=== PATIENT | female | born 1960 | race Hispanic/Latino ===

== ENCOUNTER → 2017-10-06 | Outpatient (CLI) | payer OTHER ==
[~2017-10-06] MED LIST: AMLO10TA2 PO; CHOL200074 PO; CYAN-35 PO; FOLI1TAB15 PO; ISOS20TA7 PO; LACT10SO9 PO; LEVO500T2 PO; LEVO50TA11 PO; LEVO75 PO; LOSA100T29 PO; OMEP20CA10 PO; ONDA4TAB9 PO; PROP20TA7 PO
== END | disposition home or self-care (01) ==
LOC: RAH 13:34
PROVIDERS: ATTEND Internal Medicine Cardiovascular Disease
DX: Z13.6 Encounter for screening for cardiovascular disorders (principal)
CPT/HCPCS: 75571

== ENCOUNTER 2017-11-30 06:29 | Day surgery (SDC) | payer MEDICAID ==
[~2017-11-30 06:29] MED LIST changes: -CHOL200074 PO; -CYAN-35 PO; -ISOS20TA7 PO; -LEVO75 PO; -OMEP20CA10 PO; +SODIUM CHLORIDE 0.9% 1000ML 1,000 ML IV ONE
[2017-11-30] MEDS ORDERED: PROPOFOL 1000 MG/100 ML 100 ML IV ONE (07:19)
[2017-11-30 07:20] VITALS: BP 178/77
[2017-11-30] MEDS ORDERED: CYAN-35 PO (07:34)
[2017-11-30] MEDS ORDERED: CHOL200074 PO (07:34)
[2017-11-30] MEDS ORDERED: LEVO75 PO (07:34)
[2017-11-30] MEDS ORDERED: ISOS20TA7 PO (07:35)
[2017-11-30] MEDS ORDERED: OMEP20CA10 PO (07:35)
[2017-11-30] MEDS ORDERED: LIDOCAINE HCL 2% 20ML ONE (08:11)
[2017-11-30 08:20] VITALS: BP 119/73
== END 2017-11-30 08:43 | disposition home or self-care (01) ==
LOC: DAH 06:29 → ENDO 06:29
PROVIDERS: ATTEND Internal Medicine
DX: I85.10 Secondary esophageal varices without bleeding (principal); K74.60 Unspecified cirrhosis of liver; K29.60 Other gastritis without bleeding; I10 Essential (primary) hypertension; I85.00 Esophageal varices without bleeding; E03.9 Hypothyroidism, unspecified; D64.9 Anemia, unspecified; Z90.49 Acquired absence of other specified parts of digestive tract; Z98.890 Other specified postprocedural states; Z82.49 Family history of ischemic heart disease and other diseases of the circulatory system; Z80.9 Family history of malignant neoplasm, unspecified; K21.9 Gastro-esophageal reflux disease without esophagitis
CPT/HCPCS: 43239; 88305; 88312; A4606; J2704; J3490; J7030

== ENCOUNTER 2024-11-05 10:47 | Observation (INO) | payer MEDICAID ==
[~2024-11-05] VITALS: Ht 152.4 cm; Wt 39.3 kg
[~2024-11-05 10:47] MED LIST changes: +AMLO-258 PO; -AMLO10TA2 PO; +CHOL200074 PO; +CYAN-35 PO; +ISOS-58 PO; -LEVO500T2 PO; -LEVO50TA11 PO; +LEVO75 PO; -LOSA100T29 PO; +LOSA100T59 PO; +OMEP20CA12 PO; -ONDA4TAB9 PO; -SODIUM CHLORIDE 0.9% 1000ML 1,000 ML IV ONE
--- NOTE | 2024-11-05 11:16 | ERN ---
General Chief Complaint: Dizzy/Light Headed Stated Complaint: DIZZINESS Time Seen by MD: 10:48 History of Present Illness Initial Comments 64-year-old female brought in by EMS dizziness. History of diabetes, hypertension, dyslipidemia, diverticulosis. Patient reports that this morning she woke up and when she was stood up she felt quite dizzy. She was still remains dizzy. She denies any vertigo or spinning sensation. She reports it is mostly when she stands. She does report she had a diarrheal illness about a month ago, she was feeling weak afterwards. She went to her PCP and was diagnosed with dehydration, but was set up to get an echocardiogram as an outpatient. She was not have the echo yet. She denies any chest pain or dyspnea. She denies any fevers. He has no other complaints. PCP: Susana Cordova Director Of Services: Jj Allergies: Coded Allergies: No Known Drug Allergies (Unverified Allergy, Unknown, 01/07/16) Home Meds Reported Medications Isosorbide Mononitrate (Isosorbide Mononitrate) 20 Mg Tablet, 20 MG PO DAILY, TAB 11/30/17 Omeprazole (Omeprazole) 20 Mg Capsule.dr, 20 MG PO DAILY, CAP 11/30/17 Cyanocobalamin (Vitamin B-12) (Vitamin B-12) 1,000 Mcg Capsule, 1000 MCG PO D AILY, CAP 11/30/17 Cholecalciferol (Vitamin D3) (Vitamin D-3) 2,000 Unit Capsule, 2000 UNIT PO DAILY, CAP 11/30/17 Levothyroxine Sodium (Levothroid/Synthroid) 75 Mcg Tab, 75 MCG PO DAILY, TAB 11/30/17 Lactulose (Lactulose) 20 Gm/30 Ml Solution, 20 GM PO DAILY, ML 01/07/16 Propranolol HCl (Propranolol HCl) 20 Mg Tablet, 20 MG PO BID, TAB 01/07/16 Amlodipine Besylate (Amlodipine Besylate) 10 Mg Tablet, 10 MG PO DAILY, TAB 01/07/16 Folic Acid (Folic Acid) 1 Mg Tablet, 1 MG PO DAILY, TAB 01/07/16 Losartan Potassium (Losartan Potassium) 100 Mg Tablet, 100 MG PO DAILY, TAB 01/07/16 Past Medical History Past Medical History: Diabetes-Type II, Diverticulosis, High Cholesterol, Hypertension Past Surgical History: Other Surgical History Other: ABD SX ROS Dictation CONSTITUTIONAL: No chills, no fever, no weakness, no diaphoresis, no malaise. HEAD/FACE: No signs of trauma. EENT: No eye pain, no blurred vision, no tearing, no double vision, no ear pain, no ear discharge, no nose pain, no nasal congestion, no throat pain, no th roat swelling, no mouth pain. RESPIRATORY: No cough, no orthopnea, no SOB, no stridor, no wheezing. CARDIOVASCULAR: Dizziness GASTROINTESTINAL/ABDOMINAL: No abdominal pain, no constipation, no diarrhea, no nausea, no vomiting. GENITOURINARY: No abnormal discharge, no dysuria, no frequent urination, no hematuria. No complaints of pain in the genitals. MUSCULOSKELETAL: No back pain, no gout, no joint pain, no joint swelling, no muscle pain, no muscle stiffness, no neck pain. INTEGUMENTARY: No change in color, no change in hair/nails, no dryness, no lesion, no lumps, no rash. NEUROLOGICAL/PSYCH: No anxiety, not depressed, no emotional problem, no headache, no numbness, no pre-existing deficit, no history of seizures, no tremors, no weakness. HEMATOLOGIC/LYMPHATIC: Not anemic, no history of blood clots, no apparent bleeding, no bruising, glands not swollen. All Systems Negative, Except as Noted. Physical Exam Physical Exam Dictation VITAL SIGNS: Reviewed. GENERAL APPEARANCE: Alert, oriented x3, no acute distress HEAD AND FACE: Non-traumatic. EYES: PERRL, pink conjunctivas, eyelid no trauma, anterior chamber clear. EARS: Pinnas intact and no signs of trauma or erythema. Ear canals clear and no discharge. TMs no erythema. NOSE: No discharge, no bleeding. OROPHARYNX: Mouth normal, teeth no caries, tongue pink. Pharynx clear, no e rythema. Tonsils no exudates, no abscesses noted. Mucous membrane moist. NECK: Supple, non-tender, no thyromegaly, no masses, no JVD, no bruits. BREAST: Deferred. CHEST: No tenderness, no crepitus, no paradoxical movement, no retractions. LUNGS: Clear, well-ventilated, symmetric, no rales, no wheezing, no rhonchi, no stridor, good breath sounds bilaterally. HEART: Regular rate, regular rhythm, no murmur, no gallops. VASCULAR: No peripheral edema. ABDOMEN: Soft, positive bowel sounds, nondistended, no guarding, nontender, no rebound, no masses no hepatomegaly, no splenomegaly, no Puckett's sign, no hernias. RECTAL: Deferred. GENITAL: Deferred. NEUROLOGICAL: Normal speech, gross motor function intact, gross sensory function intact. MUSCULOSKELETAL: Neck nontender, full range of motion, back nontender, full range of motion. EXTREMITIES: Nontender, full range of motion. SKIN: Color pink, dry, no turgor, no rash, no lacerations, no abrasions, no contusions. LYMPHATICS: Deferred. Results Laboratory and Microbiology Lab and Micro Result Laboratory Tests Test 11/05/24 11:53 White Blood Count 2.4 K/uL (4.8-10.8) L Red Blood Count 3.50 MIL/uL (4.00-5.50) L Hemoglobin 11.3 g/dL (12.0-16.0) L Hematocrit 34.2 % (36-48) L Mean Corpuscular Volume 97.7 fL (79-99) Mean Corpuscular Hemoglobin 32.3 pg (27.0-33.0) Mean Corpuscular Hemoglobin Concent 33.0 g/dL (32.0-36.0) Red Cell Distribution Width 14.0 % (11.0-15.5) Platelet Count 51 K/uL (130-400) L Mean Platelet Volume 11.5 fL (7.5-10.5) H Immature Granulocyte % (Auto) 0.4 % (0-1) Neutrophils (%) (Auto) 80.8 % (40.0-77.0) H Lymphocytes (%) (Auto) 13.8 % (21.0-51.0) L Monocytes (%) (Auto) 3.8 % (3.0-13.0) Eosinophils (%) (Auto) 0.4 % (0.0-8.0) Basophils (%) (Auto) 0.8 % (0.0-5.0) Neutrophils # (Auto) 1.9 K/uL (1.8-7.7) Lymphocytes # (Auto) 0.3 K/uL (1.0-4.8) L Monocytes # (Auto) 0.1 K/uL (0.1-1.0) Eosinophils # (Auto) 0.01 K/uL (0.00-0.70) Basophils # (Auto) 0.02 K/uL (0.00-0.20) Absolute Immature Granulocyte (auto 0.01 K/uL (0-1) Segmented Neutrophils % 85 % (40-70) H Band Neutrophils % 5 % (0-2) H Lymphocytes % (Manual) 6 % (22-44) L Monocytes % (Manual) 2 % (2-9) Eosinophils % (Manual) 2 % (1-6) Nucleated Red Blood Cells 0.0 % (0.0-0.19) Differential Comment MANUAL DIFFERENTIAL White Cell Morphology Comment CONSISTENT W/DIFF Platelet Morphology Comment DECREASED Red Blood Cell Morphology See comments Prothrombin Time 13.2 SEC (9.6-11.6) H Prothromb Time International Ratio 1.28 (0.85-1.15) H Sodium Level 136 mmol/L (136-145) Potassium Level 3.5 mmol/L (3.5-5.1) Chloride Level 102 mmol/L (101-111) Carbon Dioxide Level 29 mmol/L (21-32) Blood Urea Nitrogen 8 mg/dL (7-18) Creatinine 0.9 mg/dL (0.5-1.0) Glomerular Filtration Rate Calc 71 mL/min (>90) Random Glucose 104 mg/dL (70-105) Total Calcium 9.0 mg/dL (8.5-10.1) Total Creatine Kinase 44 U/L (21-232) # Troponin I High Sensitivity 25 ng/L (4-50) B-Type Natriuretic Peptide 669 pg/mL (0-100) H MDM CC: Dizziness and lightheaded Historian: Patient Comorbidities: Diabetes type 2, hypertension, high cholesterol Limitations by social determinants of health: None Differential diagnosis: ACS, dehydration, electrolyte abnormalities, brain pathology, other. Vital signs: Hypertension otherwise stable vital signs, remained stable in the ER EKG: Sinus rhythm, rate of 85, left axis deviation, good R-wave progression. Meets LVH criteria. No STEMI. Independently interpreted by me. Labs (independently interpreted by me ): Leukopenia 2.4 K, left shift 80% neutrophils, there are about 5% bands. She was also anemic normocytic anemia heme 11.3 as well as thrombocytopenic platelets 51. Coags show mildly elevated INR 1.28. Chemistry panel is unremarkable, CK troponin are stable. The BNP is mildly elevated at 669. No clinical signs of fluid overload on exam. CXR ( independently interpreted by me ): No cardiomegaly pleural effusions or focal infiltrates. CT head without contrast ( independently interpreted by me ): No obvious bleeds or masses. Treatment in ED: hydralazine, 1L LR Re-evaluation: Vital signs improved. Plan: Admission for further treatment and evaluation. Consult: hospitalist for admission ED Course Orders Procedure Category Date Status Time Cbc With Differential LAB 11/05/24 Complete 11:01 Prothrombin Time With LAB 11/05/24 Complete INR 11:01 B-Type Natriuretic LAB 11/05/24 Complete Peptide 11:01 Chest 1vw RAD 11/05/24 Resulted 11:01 12 Lead Ekg Tracing- EKG 11/05/24 Resulted Technical 11:01 Lactated Ringers PHA 11/05/24 Complete 1000ml (Lactated 11:30 Creatine Kinase, Total LAB 11/05/24 Complete 11:01 Troponin I High LAB 11/05/24 Complete Sensitivity 11:01 Urinalysis Profile LAB 11/05/24 Logged 11:01 Basic Metabolic Panel LAB 11/05/24 Complete 11:01 Ct Head/Brain W/O CT 11/05/24 Taken Contrast 11:01 Manual Differential LAB 11/05/24 Complete 11:53 Hydralazine 20mg Inj PHA 11/05/24 Verified (Apresoline 20mg In 15:00 Current Medications Medications (Trade) Dose Ordered Sig/Erika Route PRN Reason Start Time Stop Time Status Last Admin Dose Admin Lactated Ringer's 1,000 ml @ 0 mls/hr ONCE ONCE IV 11/05/24 11:30 11/05/24 11:31 DC Vital Signs Date Time Temp Pulse Resp B/P (MAP) Pulse Ox O2 Delivery O2 Flow Rate FiO2 11/05/24 10:48 98.2 88 18 176/84 97 Room Air 0 DX & DISP Disposition: Inpatient Departure Impression: Primary Impression: Hypertensive urgency Additional Impressions: Pancytopenia, Bandemia, Dizziness Critical Time: 30 minutes (Critical Care Procedure NoteAuthorized and Performed by: meTotal critical care time: Approximately 36 minutesDue to a high probability of clinically significant, life threatening deterioration, the patient required my highest level of preparedness to intervene emergently and I personally spent this critical care time directly and personally managing the patient. This critical care time included obtaining a history; examining the patient; pulse oximetry; ordering and review of studies; arranging urgent treatment with development of a management plan; evaluation of patient's r esponse to treatment; frequent reassessment; and, discussions with other providers.This critical care time was performed to assess and manage the high probability of imminent, life-threatening deterioration that could result in multi-organ failure. It was exclusive of separately billable procedures and treating other patients and teaching time.Please see MDM section and the rest of the note for further information on patient assessment and treatment.) Condition: Stable Referrals: SUSANA CORDOVA MD (PCP) BASSEM VANG DO Nov 05, 2024 11:16
--- NOTE | 2024-11-05 11:19 | EKG ---
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
[2024-11-05] MEDS: LACTATED RINGERS 1000ML 1,000 ML IV ONE (11:30)
[2024-11-05 12:10] LABS: BASOPHILS # (AUTO) 0.02 K/uL (0.00-0.20); BASOPHILS % (AUTO) 0.8 % (0.0-5.0); EOSINOPHILS # (AUTO) 0.01 K/uL (0.00-0.70); EOSINOPHILS % (AUTO) 0.4 % (0.0-8.0); HEMATOCRIT 34.2 % (36-48); IMMATURE GRANULOCYTE ABSOLUTE 0.01 K/uL (0-1); LYMPHOCYTES # (AUTO) 0.3 K/uL (1.0-4.8); LYMPHOCYTES % (AUTO) 13.8 % (21.0-51.0); MEAN CORPUSCULAR HEMOGLOBIN 32.3 pg (27.0-33.0); MEAN CORPUSCULAR VOLUME 97.7 fL (79-99); MONOCYTES # (AUTO) 0.1 K/uL (0.1-1.0); MONOCYTES % (AUTO) 3.8 % (3.0-13.0); NEUTROPHILS # (AUTO) 1.9 K/uL (1.8-7.7); NEUTROPHILS % (AUTO) 80.8 % (40.0-77.0); PLATELET COUNT (AUTO) 51 K/uL (130-400); WHITE BLOOD COUNT (AUTO) 2.4 K/uL (4.8-10.8)
--- NOTE | 2024-11-05 12:11 | HMCIMG ---
CHEST 1VW HISTORY: Dizziness COMPARISON: 05/08/2016 FINDINGS: A frontal projection of the chest was obtained. Mild bilateral pulmonary infiltrates are seen may be related to mild pulmonary vascular congestion with possible superimposed pneumonitis. The heart is borderline enlarged. Degenerative changes are seen. No evidence of aortic calcification is seen. IMPRESSION: 1. Mild bilateral pulmonary infiltrates are seen may be related to mild pulmonary vascular congestion with possible superimposed pneumonitis.
[2024-11-05 12:19] LABS: CREATININE 0.9 mg/dL (0.5-1.0); INR 1.28 (0.85-1.15); POTASSIUM 3.5 mmol/L (3.5-5.1); PROTHROMBIN TIME 13.2 SEC (9.6-11.6)
[2024-11-05 12:35] LABS: B-TYPE NATRIURETIC PEPTIDE 669 pg/mL (0-100)
[2024-11-05 14:13] LABS: BAND NEUTROPHILS % (MANUAL) 5 % (0-2); EOSINOPHILS % (MANUAL) 2 % (1-6); LYMPHOCYTES % (MANUAL) 6 % (22-44); MAN.DIFF COMMENT-IMPRESSION MANUAL DIFFERENTIAL; MONOCYTES % (MANUAL) 2 % (2-9); PLATELET MORPHOLOGY COMMENT DECREASED; SEGMENTED NEUTROPHILS % 85 % (40-70); TOTAL CELLS COUNTED 100; WBC MORPHOLOGY CONSISTENT W/DIFF
--- NOTE | 2024-11-05 14:37 | HMCIMG ---
CT HEAD/BRAIN W/O CONTRAST HISTORY: Dizziness COMPARISON: None TECHNIQUE: Multiple sequential axial images of the head were obtained from the base of the skull through vertex. Patient was not given contrast through intravenous route. FINDINGS: The ventricles and extraventricular CSF spaces are nondilated for patient's age. There is no midline shift, mass effect or herniation. No acute intracranial bleed is seen. Visualized portion of the paranasal sinuses are grossly within normal limits. IMPRESSION: 1. No acute intracranial bleed is seen. CT was performed with one or more following dose reduction techniques: automated exposure control, adjustment of the mA and kv according to patient's size, or use of a iterative reconstruction technique.
[2024-11-05] MEDS: hydrALAZine 20MG/ML VIAL IV ONE (15:01)
[2024-11-05] MEDS ORDERED: MAG/ALUM/SIMETH 30 ML UDCUP PO PRN (15:30)
[2024-11-05] MEDS ORDERED: guaiFENesin-DM 200/20MG 10ML PO PRN (15:30)
[2024-11-05] MEDS ORDERED: DiphenhydrAMINE HCL 25 MG CAPSULE PO PRN (15:30)
[2024-11-05] MEDS ORDERED: LACTULOSE 20 GM/30 ML UDCUP PO PRN (15:30)
[2024-11-05] MEDS ORDERED: acetaMINOPHEN WITH coDEINE 1 TAB TAB PO PRN ×2 (15:30)
[2024-11-05] MEDS ORDERED: NITROGLYCERIN 0.4 MG SL TAB SL PRN (15:30)
[2024-11-05] MEDS ORDERED: acetaMINOPHEN 325 MG TAB PO PRN ×2 (15:30)
--- NOTE | 2024-11-05 15:55 | NUR ---
Anila monzon in ED - 11/05/24 at 1645 by [email or web address] BAR CODES FROM ANTIBIOTICS NOT SCANNING: DOXYCICLINE LOT #[id number] CEFEPIME LOT#[id number] AZITHROMYCIN LOT#[id number]
--- NOTE | 2024-11-05 16:05 | HP ---
[facility] HISTORY AND PHYSICAL Date of Service: Nov 05, 2024 Time of Service: 15:58 HISTORY OF PRESENT ILLNESS: 64-year-old female with past medical history of essential hypertension, hyperlipidemia, liver cirrhosis, osteoarthritis, GERD, who presented to [facility] ED earlier today brought by EMS for concerns of dizziness. Patient reports earlier in the day when she woke up she began to experience some dizziness, and near-syncope episode. Patient did not lose consciousness. Patient denied chest pain shortness breath fever chills nausea vomiting or diaphoresis. Patient states she is followed closely in the outpatient setting by her primary control systems designer Dr. Gardner who has scheduled her for some cardiac exam is in the coming weeks. She states her symptoms of dizziness continued, and progressively worsened this morning therefore she decided to come to the hospital for further evaluation. Upon arrival to ED she was noted afebrile, blood pressure 176/84, heart rate 88, respirations 18, O2 saturation 97% on room air. Further evaluation lab significant for WBCs 2.4, H&H 11.3 and 34.2, platelet count 51, BNP of 669, PT of 13.2, INR of 1.2. CXR revealed mild pulmonary vascular congestion. Head CT with no acute findings. EKG revealed NSR, with prolonged MT interval, LVH. In the ED patient was administered one time dose of IV hydralazine, placed on IVF. Request then made to admit to the hospital for further evaluation and management. REVIEW OF SYSTEMS CONSTITUTIONAL: Denies fevers, chills, or night sweats. No unintentional weight loss reported. NEUROLOGICAL: As mentioned in HPI ENT: No hearing loss, otalgia, otorrhea, rhinitis, rhinorrhea, hoarseness, or sore throat. CARDIOVASCULAR: As mentioned in HPI PULMONARY: Denies any shortness of breath, cough, phlegm/sputum, hemoptysis, pleuritic chest pain. SLEEP: Denies morning headaches, daytime somnolence or napping. Denies difficulty falling asleep, staying asleep, waking from sleep. Denies knowledge of snoring. GASTROINTESTINAL: Denies any type of dysphagia to either liquids or solids. Denies nausea, vomiting, pyrosis, early satiety, abdominal pain, diarrhea, constipation, or changes in stool consistency or caliber. Denies coffee-ground emesis, hematemesis, hematochezia, or melanotic stools. GENITOURINARY: Denies frequency, urgency, nocturia, hematuria or incontinence (Storage/Irritative symptoms.) Low urinary stream, straining to void, urinary intermittency or hesitancy, splitting of the voiding stream, terminal dribbling. ENDOCRINOLOGIC: Denies polyuria, polydipsia, polyphagia or heat/cold intolerances. HEMATOLOGIC: Denies thrombophilia/previous clots, or coagulopathy/bleeding disorders. ONCOLOGIC: Denies personal history of malignancy. DERMATOLOGIC: Denies rashes or pruritus. PSYCHIATRIC: Denies any suicidal or homicidal ideation. Denies hallucinations. PAST MEDICAL HISTORY: MENTIONED IN HPI PAST SURGICAL HISTORY: COLON SURGERY PAST SOCIAL HISTORY: NO TOBACCO NO ALCOHOL NO SUBSTANCE ABUSE FAMILY HISTORY: NONCONTRIBUTORY Coded Allergies: No Known Drug Allergies (Unverified Allergy, Unknown, 01/07/16) PHYSICAL EXAM GENERAL APPEARANCE: The patient is awake, alert, and oriented, in no acute cardiopulmonary distress. NEUROLOGICAL: Cranial nerves II-XII grossly intact. Motor is 5/5 in bilateral upper and lower extremities proximal to distal. No sensory deficits. HEENT: Face is symmetric. Pupils are equal and reactive. Extraocular movements are intact. NECK: Supple. No JVD. No thyromegaly. No submental, submandibular, pre- /postauricular, occipital or supraclavicular lymphadenopathy. CHEST: Normal chest expansion. No Telemetry. LUNGS: Absence of any rales, rhonchi or any wheezing. CARDIOVASCULAR: Regular. S1 and S2 normal. No appreciable rubs, murmurs or gallops. ABDOMEN: Soft, nontender, and nondistended. There is no rebound, voluntary guarding, or rigidity. : Deferred. No Church. EXTREMITIES: Non-edematous and not cyanotic. No clubbing. Good capillary refill. SKIN: No skin breakdown. Vital Sign (Last 24 Hours) 11/05/24 10:48 Temp 98.2 Pulse 88 Resp 18 B/P (MAP) 176/84 Pulse Ox 97 O2 Delivery Room Air O2 Flow Rate 0 LABS: Laboratory: Test 11/05/24 11:53 Range/Units White Blood Count 2.4 L 4.8-10.8 K/uL Red Blood Count 3.50 L 4.00-5.50 MIL/uL Hemoglobin 11.3 L 12.0-16.0 g/dL Hematocrit 34.2 L 36-48 % Mean Corpuscular Volume 97.7 79-99 fL Mean Corpuscular Hemoglobin 32.3 27.0-33.0 pg Mean Corpuscular Hemoglobin Concent 33.0 32.0-36.0 g/dL Red Cell Distribution Width 14.0 11.0-15.5 % Platelet Count 51 L 130-400 K/uL Mean Platelet Volume 11.5 H 7.5-10.5 fL Immature Granulocyte % (Auto) 0.4 0-1 % Neutrophils (%) (Auto) 80.8 H 40.0-77.0 % Lymphocytes (%) (Auto) 13.8 L 21.0-51.0 % Monocytes (%) (Auto) 3.8 3.0-13.0 % Eosinophils (%) (Auto) 0.4 0.0-8.0 % Basophils (%) (Auto) 0.8 0.0-5.0 % Neutrophils # (Auto) 1.9 1.8-7.7 K/uL Lymphocytes # (Auto) 0.3 L 1.0-4.8 K/uL Monocytes # (Auto) 0.1 0.1-1.0 K/uL Eosinophils # (Auto) 0.01 0.00-0.70 K/uL Basophils # (Auto) 0.02 0.00-0.20 K/uL Absolute Immature Granulocyte (auto 0.01 0-1 K/uL Segmented Neutrophils % 85 H 40-70 % Band Neutrophils % 5 H 0-2 % Lymphocytes % (Manual) 6 L 22-44 % Monocytes % (Manual) 2 2-9 % Eosinophils % (Manual) 2 1-6 % Nucleated Red Blood Cells 0.0 0.0-0.19 % Differential Comment MANUAL DIFFERENTIAL White Cell Morphology Comment CONSISTENT W/DIFF Platelet Morphology Comment DECREASED Red Blood Cell Morphology See comments Prothrombin Time 13.2 H 9.6-11.6 SEC Prothromb Time International Ratio 1.28 H 0.85-1.15 Sodium Level 136 136-145 mmol/L Potassium Level 3.5 3.5-5.1 mmol/L Chloride Level 102 101-111 mmol/L Carbon Dioxide Level 29 21-32 mmol/L Blood Urea Nitrogen 8 7-18 mg/dL Creatinine 0.9 0.5-1.0 mg/dL Glomerular Filtration Rate Calc 71 >90 mL/min Random Glucose 104 70-105 mg/dL Total Calcium 9.0 8.5-10.1 mg/dL Total Creatine Kinase 44 # 21-232 U/L Troponin I High Sensitivity 25 4-50 ng/L B-Type Natriuretic Peptide 669 H 0-100 pg/mL Current Medications Medications (Trade) Dose Ordered Sig/Erika Route PRN Reason Start Time Stop Time Status Last Admin Dose Admin Acetaminophen (TYLenol 325MG TAB) 650 mg Q4H PRN PO MILD PAIN (1-3) 11/05/24 15:30 12/05/24 15:29 Acetaminophen (TYLenol 325MG TAB) 650 mg Q6H PRN PO TEMPERATURE GREATER THAN 101.5 11/05/24 15:30 12/05/24 15:29 Acetaminophen/ Codeine Phosphate (TYLenol-coDEINE TAB) 1 tab Q6H PRN PO MODERATE PAIN (4-6) 11/05/24 15:30 12/05/24 15:29 Acetaminophen/ Codeine Phosphate (TYLenol-coDEINE TAB) 2 tab Q6H PRN PO SEVERE PAIN (7-10) 11/05/24 15:30 12/05/24 15:29 Al Hydroxide/Mg Hydroxide (MAALox PLUS 30ML) 30 ml Q6H PRN PO INDIGESTION 11/05/24 15:30 12/05/24 15:29 Diphenhydramine HCl (BENAdryl CAP) 25 mg Q4H PRN PO MILD ITCHING/RASH 11/05/24 15:30 12/05/24 15:29 Famotidine (Pepcid 20mg Vial) 20 mg BID IV 11/05/24 21:00 12/05/24 20:59 Guaifenesin/ Dextromethorphan (RobiTUSSin DM 200/20MG 10ML) 10 ml Q4H PRN PO COUGH 11/05/24 15:30 12/05/24 15:29 Hydralazine HCl (APRESOLine 20MG INJ) 10 mg Q6H PRN IV For:SBP above 160;DBP above 90 11/05/24 15:30 12/05/24 15:29 Lactulose (Constulose 20gm/ 30ml Udcup) 20 gm BID PRN PO CONSTIPATION 11/05/24 15:30 12/05/24 15:29 Nitroglycerin (Nitrostat) 0.4 mg PROTOCOL PRN SL CHEST PAIN 11/05/24 15:30 12/05/24 15:29 Ondansetron HCl (zoFRAN 4MG INJ) 4 mg Q6H PRN IV NAUSEA/VOMITING 11/05/24 15:30 12/05/24 15:29 DIAGNOSTICS / RADIOLOGY: [ ] ASSESSMENT: Near-syncope POA Pulmonary edema POA Elevated BNP POA Liver cirrhosis POA Pancytopenia POA Essential hypertension POA Hyperlipidemia POA PLAN: Admit patient to telemetry floor under hospitalist team Obtain home medications, reconcile and resume accordingly Obtain 2D echo Obtain carotid Dopplers Request Cardiology consult PT evaluation Okay to initiate heart healthy diet Pepcid for GI prophylaxis SCDs for DVT prophylaxis P.r.n. medications for fever, pain, nausea, constipation Follow-up a.m. labs Further orders per hospital course ADVANCED CARE PLANNING 1. Which of the following were discussed? Hospice Care - No Therapeutic options - Yes Advance Directives - Yes Other discussions - 2. Discussed with who? The patient 3. Voluntary nature of this service was explained to the patient? Yes 4. Amount of time spent - ___ 20 minutes ____ 5. Reviewed by Physician? (if this service was performed by NPP) Yes DELFINA BOWMAN Nov 05, 2024 16:05
--- NOTE | 2024-11-05 16:13 | HMCIMG ---
US CAROTID DUPLEX HISTORY: Near syncope COMPARISON: None TECHNIQUE: Duplex carotid arterial Doppler ultrasound study was performed. FINDINGS: The common, internal and external carotid arteries are visualized. The peak systolic velocities of right common carotid artery is 107 centimeters per second, right internal carotid artery is 129 centimeters per second, right external carotid artery is 117 centimeters per second, and right vertebral artery is 95 centimeters per second. Right internal carotid artery to right common carotid artery ratio is 1.2. Right vertebral artery is seen with antegrade flow. The peak systolic velocities of left common carotid artery is 125 centimeters per second, left internal carotid artery is 155 centimeters per second, left external carotid artery is 168 centimeters per second, and left vertebral artery is 87 centimeters per second. Left internal carotid artery to left common carotid artery ratio is 1.2. Left vertebral artery is seen with antegrade flow. There are bilateral echogenic plaques. IMPRESSION: 1. No hemodynamically significant lesion is seen of either extracranial carotid artery system.
--- NOTE | 2024-11-05 16:45 | NUR ---
NOTIFY MR. DELFINA BATEMAN FOR HOSPITALIST OF POTASSIUM 3.5 AND PLATLETS 51. NO NEW ORDERS.
[2024-11-05] MEDS: ondanSETRON 4MG INJ IV PRN (17:06)
--- NOTE | 2024-11-05 19:13 | NUR ---
NOTIFY DR. FRANCES OF NEW CONSULT.
--- NOTE | 2024-11-05 19:23 | NUR ---
PT CARE ASSUMED AT THIS TIME
--- NOTE | 2024-11-05 19:34 | NUR ---
DR. FRANCES AT BEDSIDE AT THIS TIME
--- NOTE | 2024-11-05 19:45 | CONS ---
[facility] Cardiology Consultation Note Cardiology progress note November 05, 2024 Chief complaint: This is a 64-year-old female whom we are asked to evaluate for near-syncope. History of present illness: This patient was initially referred to me in 2018 for evaluation of a systolic murmur. At that point she had had a 2D echocardiogram performed by Dr. Alcaraz. Several request obtain a copy of the report but this could never be obtained. I scheduled her for a repeat echo but she never followed up. She was seen again by me on October 24, 2024. At that time she related that she was having dizziness and feeling of near-syncope. Has been states at times she would appeared dazed and staring into space. Electrocardiogram showed septal Q-waves. She was scheduled for a 2D echocardiogram Lexiscan Cardiolite stress test and one week electronic device monitor. All of which are currently pending. Past medical history: She has a history of hypertension dyslipidemia atrophic kidney cirrhosis with pancytopenia and hypothyroidism. Surgical history: EGD June 2013 remote colon surgery Family history: Mother had malignant tumor of the stomach Social history: She is a nonsmoker nondrinker Allergies: No known allergies Medications: At the time of my evaluation two weeks ago she was taking omeprazole 20 mg daily folic acid1 mg b.i.d. [id number] mcg daily propranolol 20 mg b.i.d. vitamin B12 losartan 100 mg daily amlodipine 10 mg daily and Kristalose pack at one daily and vitamin-D supplementation. Physical exam: Blood pressure is 176/84 heart rate is in the 80s the patient is afebrile. She has no elevation of the jugular venous pressure no bruits S1 normal S2 physiologically split. 1/6 systolic ejection murmur is present. No diastolic component appreciable. Abdomen is soft nontender. Extremities show no edema. She is alert and oriented. Laboratory studies: White count 2.4 Hemoglobin 11.3 Platelet count 01812. Potassium 3.5 BUN eight creatinine 0.9. Brain natriuretic peptide level 669 troponin of 25. Electrocardiogram four one sinus rhythm with septal Q-waves in V1 V2 no acute ST changes. Chest x-ray: This is a portable film. Borderline heart size no effusions or infiltrates. Thorax. Trachea is midline. Small granuloma are noted. Assessment: 1. Near-syncope 2. Abnormal EKG with septal Q-waves in V1 V2 3. Cirrhosis when 4. Pancytopenia 5. Hypothyroidism 6. Hypertension 7. Atrophic kidney Plan: The patient has been scheduled for an event monitor 2D echo and Lexiscan Cardiolite stress test to assess her septal Q-waves. We will plan on performing these tests as an inpatient given her persistent symptoms. I will review results when available. We will watch for arrhythmias while on telemetry. If workup is negative I would consider neurologic evaluation as an outpatient to assess for possible seizure disorder. CADE FRANCES MD Nov 05, 2024 19:45
--- NOTE | 2024-11-05 20:30 | NUR ---
PT PLACED ON A PUREWICK AT THIS TIME
[2024-11-05] MEDS: FAMOTIDINE 20MG VIAL IV SCH (20:58)
[2024-11-05] MEDS: PROPRANOLOL HCL 20 MG TAB PO SCH (20:58)
[2024-11-06] MEDS: hydrALAZine 20MG/ML VIAL IV PRN (03:31)
[2024-11-06 04:02] LABS: APPEARANCE,URINE CLEAR (CLEAR); BILIRUBIN,URINE NEGATIVE (NEGATIVE); COLOR,URINE LIGHT-YELLOW (YELLOW); GLUCOSE, URINE (UA) NEGATIVE (NEGATIVE); KETONES,URINE NEGATIVE (NEGATIVE); LEUKOCYTE ESTERASE ,URINE NEGATIVE Leu/uL (NEGATIVE); NITRATE,URINE NEGATIVE (NEGATIVE); OCCULT BLOOD,URINE NEGATIVE (NEGATIVE); PROTEIN,URINE NEGATIVE (NEGATIVE); UROBILINOGEN,URINE 0.2 mg/dL (0.2-1.0)
[2024-11-06 04:12] LABS: ADD UA MICROSCOPIC NO
--- NOTE | 2024-11-06 06:21 | NUR ---
NUCLEAR MED AT BEDSIDE AT THIS TIME
[2024-11-06] MEDS: levoTHYROxine 75 MCG TABLET PO SCH (06:30)
--- NOTE | 2024-11-06 06:30 | NUR ---
PER NUCLEAR MED ED RN WAS INSTRUCTED TO HOLD SYNTHROID FOR AN HOUR TIL SECOND PORTION OF PREP IS DONE. INSTRUCTIONS WILL BE RELATED TO DAY SHIFT RN.
--- NOTE | 2024-11-06 07:21 | NUR ---
REPORT GIVEN TO JAN JAVIER
[2024-11-06] MEDS: PANTOPrazole 40 MG TAB DR PO SCH (07:30)
--- NOTE | 2024-11-06 08:12 | PN ---
[facility] Cardiology Progress Note CARDIOLOGY PROGRESS NOTE NOVEMBER 06, 2024 Problems: 1. Near-syncope 2. Abnormal EKG with septal Q-waves in V1 V2 3. Cirrhosis when 4. Pancytopenia 5. Hypothyroidism 6. Hypertension 7. Atrophic kidney Blood pressure is running 140-150 systolic heart rate is in the 70s and the patient is afebrile. Troponin was 25. Brain natriuretic peptide level 669 however it is difficult to interpret this in the setting of cirrhosis. The patient continues on amlodipine famotidine folic acid vitamin-D lactulose levothyroxine losartan pantoprazole and propranolol. She is scheduled for a 2D echocardiogram and Lexiscan Cardiolite stress test today. I will review results when available and make further recommendations. No arrhythmias noted overnight. As noted the had described episodes where she stares into space. If workup here is negative would suggest outpatient neurology evaluation. CADE FRANCES MD Nov 06, 2024 08:11
--- NOTE | 2024-11-06 08:15 | NUR ---
DR FRANCES AT BEDSIDE FOR CARDIOLOGY
--- NOTE | 2024-11-06 08:22 | NUR ---
IN LEXISCAN AT THIS TIME
[2024-11-06] MEDS ORDERED: REGADENOSON 0.4 MG/5 ML PF SYG IVP ONE (08:30)
[2024-11-06] MEDS: CHOLECALCIFEROL 2000 UNIT PO SCH (09:00)
[2024-11-06] MEDS: FOLic ACID 1 MG TABLET PO SCH (11:13)
[2024-11-06] MEDS: CYANOCOBALAMIN (VITAMIN B-12) 1,000 MCG TABLET PO SCH (11:13)
[2024-11-06] MEDS: amLODIPine 5 MG TAB PO SCH (11:13)
[2024-11-06] MEDS: LACTULOSE 20 GM/30 ML UDCUP PO SCH (11:13)
[2024-11-06] MEDS: LoSARTan 100 MG TABLET PO SCH (11:13)
--- NOTE | 2024-11-06 15:19 | NUR ---
DCP: HOME Pt on SSI, lives at home with her Darshan Pratt [phone]. assists pt as needed with ADLS, home management, transportation, and meal prep. Pt uses a cane when ambulating. Has no in home care services or HD need. PCP is Prateek Mooney and uses [facility] on [address]. DCP is home Addendum: 11/06/24 at 1519 by PORFIRIO LIND Amended: Links added.
--- NOTE | 2024-11-06 15:22 | PN ---
[facility] PROGRESS NOTE Date of Service: Nov 06, 2024 Time of Service: 15:19 SUBJECTIVE: [This is a 64-year-old female with significant medical history of hypertension. She presented to the emergency department with complaints of dizziness. Apparently patient woke up yesterday feeling dizzy and able to ambulate hence she came to the emergency department for further evaluation. Imaging was done including CT of the head, and chest x-ray which were unremarkable. Patient went for Lexiscan this morning and a 2D echo ultrasound still pending report. We will continue to follow recommendations from the bushwalking guide. She was evaluated in ED room 13, on my evaluation, patient denies any dizziness. ] REVIEW OF SYSTEMS CONSTITUTIONAL: Denies fevers, chills, or night sweats. No unintentional weight loss reported. NEUROLOGICAL: As mentioned in HPI ENT: No hearing loss, otalgia, otorrhea, rhinitis, rhinorrhea, hoarseness, or sore throat. CARDIOVASCULAR: As mentioned in HPI PULMONARY: Denies any shortness of breath, cough, phlegm/sputum, hemoptysis, pleuritic chest pain. SLEEP: Denies morning headaches, daytime somnolence or napping. Denies difficulty falling asleep, staying asleep, waking from sleep. Denies knowledge of snoring. GASTROINTESTINAL: Denies any type of dysphagia to either liquids or solids. Denies nausea, vomiting, pyrosis, early satiety, abdominal pain, diarrhea, constipation, or changes in stool consistency or caliber. Denies coffee-ground emesis, hematemesis, hematochezia, or melanotic stools. GENITOURINARY: Denies frequency, urgency, nocturia, hematuria or incontinence (Storage/Irritative symptoms.) Low urinary stream, straining to void, urinary intermittency or hesitancy, splitting of the voiding stream, terminal dribbling. ENDOCRINOLOGIC: Denies polyuria, polydipsia, polyphagia or heat/cold intoleranc es. HEMATOLOGIC: Denies thrombophilia/previous clots, or coagulopathy/bleeding disorders. ONCOLOGIC: Denies personal history of malignancy. DERMATOLOGIC: Denies rashes or pruritus. PSYCHIATRIC: Denies any suicidal or homicidal ideation. Denies hallucinations. PHYSICAL EXAM GENERAL APPEARANCE: The patient is awake, alert, and oriented, in no acute cardiopulmonary distress. NEUROLOGICAL: Cranial nerves II-XII grossly intact. Motor is 5/5 in bilateral upper and lower extremities proximal to distal. No sensory deficits. HEENT: Face is symmetric. Pupils are equal and reactive. Extraocular movements are intact. NECK: Supple. No JVD. No thyromegaly. No submental, submandibular, pre- /postauricular, occipital or supraclavicular lymphadenopathy. CHEST: Normal chest expansion. No Telemetry. LUNGS: Absence of any rales, rhonchi or any wheezing. CARDIOVASCULAR: Regular. S1 and S2 normal. No appreciable rubs, murmurs or gallops. ABDOMEN: Soft, nontender, and nondistended. There is no rebound, voluntary guarding, or rigidity. : Deferred. No Church. EXTREMITIES: Non-edematous and not cyanotic. No clubbing. Good capillary refill. SKIN: No skin breakdown. Vital Signs (last 8hr) Date Time Temp Pulse Resp B/P (MAP) Pulse Ox O2 Delivery O2 Flow Rate FiO2 11/06/24 11:45 98.1 64 16 156/72 95 Room Air* 0 21 11/06/24 07:28 98.1 70 16 158/72 97 Room Air* 0 21 LABS: Laboratory: Test 11/06/24 03:32 11/05/24 11:53 Range/Units Urine Color LIGHT-YELLOW YELLOW Urine Appearance CLEAR CLEAR Urine pH 8.0 5.0-8.0 Urine Specific Hepler 1.008 1.001-1.031 Urine Protein NEGATIVE NEGATIVE mg/dL Urine Glucose (UA) NEGATIVE NEGATIVE mg/dL Urine Ketones NEGATIVE NEGATIVE mg/dL Urine Occult Blood NEGATIVE NEGATIVE Urine Nitrate NEGATIVE NEGATIVE Urine Bilirubin NEGATIVE NEGATIVE mg/dL Urine Urobilinogen 0.2 0.2-1.0 mg/dL Urine Leukocyte Esterase NEGATIVE NEGATIVE Harjeet/uL White Blood Count 2.4 L 4.8-10.8 K/uL Red Blood Count 3.50 L 4.00-5.50 MIL/uL Hemoglobin 11.3 L 12.0-16.0 g/dL Hematocrit 34.2 L 36-48 % Mean Corpuscular Volume 97.7 79-99 fL Mean Corpuscular Hemoglobin 32.3 27.0-33.0 pg Mean Corpuscular Hemoglobin Concent 33.0 32.0-36.0 g/dL Red Cell Distribution Width 14.0 11.0-15.5 % Platelet Count 51 L 130-400 K/uL Mean Platelet Volume 11.5 H 7.5-10.5 fL Immature Granulocyte % (Auto) 0.4 0-1 % Neutrophils (%) (Auto) 80.8 H 40.0-77.0 % Lymphocytes (%) (Auto) 13.8 L 21.0-51.0 % Monocytes (%) (Auto) 3.8 3.0-13.0 % Eosinophils (%) (Auto) 0.4 0.0-8.0 % Basophils (%) (Auto) 0.8 0.0-5.0 % Neutrophils # (Auto) 1.9 1.8-7.7 K/uL Lymphocytes # (Auto) 0.3 L 1.0-4.8 K/uL Monocytes # (Auto) 0.1 0.1-1.0 K/uL Eosinophils # (Auto) 0.01 0.00-0.70 K/uL Basophils # (Auto) 0.02 0.00-0.20 K/uL Absolute Immature Granulocyte (auto 0.01 0-1 K/uL Segmented Neutrophils % 85 H 40-70 % Band Neutrophils % 5 H 0-2 % Lymphocytes % (Manual) 6 L 22-44 % Monocytes % (Manual) 2 2-9 % Eosinophils % (Manual) 2 1-6 % Nucleated Red Blood Cells 0.0 0.0-0.19 % Differential Comment MANUAL DIFFERENTIAL White Cell Morphology Comment CONSISTENT W/DIFF Platelet Morphology Comment DECREASED Red Blood Cell Morphology See comments Prothrombin Time 13.2 H 9.6-11.6 SEC Prothromb Time International Ratio 1.28 H 0.85-1.15 Sodium Level 136 136-145 mmol/L Potassium Level 3.5 3.5-5.1 mmol/L Chloride Level 102 101-111 mmol/L Carbon Dioxide Level 29 21-32 mmol/L Blood Urea Nitrogen 8 7-18 mg/dL Creatinine 0.9 0.5-1.0 mg/dL Glomerular Filtration Rate Calc 71 >90 mL/min Random Glucose 104 70-105 mg/dL Total Calcium 9.0 8.5-10.1 mg/dL Total Creatine Kinase 44 # 21-232 U/L Troponin I High Sensitivity 25 4-50 ng/L B-Type Natriuretic Peptide 669 H 0-100 pg/mL Current Medications Medications (Trade) Dose Ordered Sig/Erika Route PRN Reason Start Time Stop Time Status Last Admin Dose Admin Acetaminophen (TYLenol 325MG TAB) 650 mg Q4H PRN PO MILD PAIN (1-3) 11/05/24 15:30 12/05/24 15:29 Acetaminophen (TYLenol 325MG TAB) 650 mg Q6H PRN PO TEMPERATURE GREATER THAN 101.5 11/05/24 15:30 12/05/24 15:29 Acetaminophen/ Codeine Phosphate (TYLenol-coDEINE TAB) 1 tab Q6H PRN PO MODERATE PAIN (4-6) 11/05/24 15:30 12/05/24 15:29 Acetaminophen/ Codeine Phosphate (TYLenol-coDEINE TAB) 2 tab Q6H PRN PO SEVERE PAIN (7-10) 11/05/24 15:30 12/05/24 15:29 Al Hydroxide/Mg Hydroxide (MAALox PLUS 30ML) 30 ml Q6H PRN PO INDIGESTION 11/05/24 15:30 12/05/24 15:29 Amlodipine Besylate (NorvASC 5MG TAB) 10 mg DAILY PO 11/06/24 09:00 12/06/24 08:59 11/06/24 11:13 10 MG Diphenhydramine HCl (BENAdryl CAP) 25 mg Q4H PRN PO MILD ITCHING/RASH 11/05/24 15:30 12/05/24 15:29 Famotidine (Pepcid 20mg Vial) 20 mg BID IV 11/05/24 21:00 12/05/24 20:59 11/06/24 11:13 20 MG Folic Acid (FOLic ACID 1 MG TABLET) 1 mg DAILY PO 11/06/24 09:00 12/06/24 08:59 11/06/24 11:13 1 MG Guaifenesin/ Dextromethorphan (RobiTUSSin DM 200/20MG 10ML) 10 ml Q4H PRN PO COUGH 11/05/24 15:30 12/05/24 15:29 Home Med (Home Medication) (Cholecalciferol (Vitamin ... DAILY PO 11/06/24 09:00 12/06/24 08:59 Hydralazine HCl (APRESOLine 20MG INJ) 10 mg Q6H PRN IV For:SBP above 160;DBP above 90 11/05/24 15:30 12/05/24 15:29 11/06/24 03:31 10 MG Lactulose (Constulose 20gm/ 30ml Udcup) 20 gm BID PRN PO CONSTIPATION 11/05/24 15:30 12/05/24 15:29 Lactulose (Constulose 20gm/ 30ml Udcup) 20 gm DAILY PO 11/06/24 09:00 12/06/24 08:59 11/06/24 11:13 20 GM Levothyroxine Sodium (SYNTHroid 75MCG TAB) 75 mcg SYN PO 11/06/24 06:30 12/06/24 06:29 Losartan Potassium (CozAAR 100MG TAB) 100 mg DAILY PO 11/06/24 09:00 12/06/24 08:59 11/06/24 11:13 100 MG Nitroglycerin (Nitrostat) 0.4 mg PROTOCOL PRN SL CHEST PAIN 11/05/24 15:30 12/05/24 15:29 Ondansetron HCl (zoFRAN 4MG INJ) 4 mg Q6H PRN IV NAUSEA/VOMITING 11/05/24 15:30 12/05/24 15:29 11/05/24 17:06 4 MG Pantoprazole Sodium (PROTonix 40MG TAB) 40 mg ACBKFST PO 11/06/24 07:30 12/06/24 07:29 11/06/24 11:13 40 MG Propranolol HCl (Inderal) 20 mg BID PO 11/05/24 21:00 12/05/24 20:59 11/06/24 11:13 20 MG Vitamin B Complex (Vitamin B-12) 1,000 mcg DAILY PO 11/06/24 09:00 12/06/24 08:59 11/06/24 11:13 1,000 MCG DIAGNOSTICS / RADIOLOGY: [ ] ASSESSMENT: Near-syncope POA Pulmonary edema POA Elevated BNP POA Liver cirrhosis POA Pancytopenia POA Essential hypertension POA Hyperlipidemia POA PLAN: Continue telemetry Home medications has been reviewed and reconciled by bushwalking guide 2D echo done, pending results Patient is status post stress test Carotid Dopplers showed no hemodynamically significant lesion is seen either extracranial carotid artery system. Appreciate recommendations from Dr. Ayers's, cardiology PT evaluation Continue with heart healthy diet Pepcid for GI prophylaxis SCDs for DVT prophylaxis P.r.n. medications for fever, pain, nausea, constipation Follow-up a.m. labs Further orders per hospital course Patient was seen and examined with Dr. Lopez, above plan was formulated ATTESTATION BY PHYSICIAN I have seen and examined the patient. I reviewed the documentation, medical decision making, and treatment plan as noted by the mid-level provider above. I agree with the findings and plan of care. YARON LOPEZ MD, [facility] Nov 06, 2024 15:22
--- NOTE | 2024-11-06 16:42 | HMCSR ---
APPROVED REPORT Height: 5 ft 0in Weight: 100 lbs TEST INDICATIONS Silent Anteroseptal GA The imaging protocol used to acquire images was Rest Tc-99m/stress Tc-99m 1 day Consent: The procedure was explained and understood by the patient. Informerd consent was witnessed Tyrese Zepeda RN First, low dose rest was performed then high dose stress. RESTING DATA: The resting ekg shows: n, NSR Rest SPECT myocardial perfusion imaging was performed in supine position minutes following the intra venous injection of 11.5 mCi of Tc-99 Sestamibi. Time of rest injection: 06:30: Date: 11/06/2024 PHARMACOLOGIC STRESS: Pharmacologic stress test was performed by injecting regadenoson 0.4 mg IV push followed by the intra venous injection of 29 mCi of Tc-99 Sestamibi. Time of stress injection: 09:00: Date: 11/06/2024 Heart Rate at time of stress injection: 70 bpm. Gated Stress SPECT was performed 60 minutes after stress injection. The images were gated to evaluate regional wall motion and calculate left ventricular ejection fracti on. STRESS DETAILS Reason for Termination: Infusion complete Stress Symptoms: Dyspnea Max HR Achieved: 83 bpm % of APMHR Achieved: 63 Max Blood Pressure: 169/63 mmHg Stress ECG: NSR LEFT VENTRICLE The left ventricular ejection fraction was calculated to be 75%.TID = 1.10. LV PERFUSION The rest and stress images show normal perfusion. IMPRESSION Normal pharmacologic nuclear stress test. Global LV Function: Normal Stress ECG Summary: Normal LV Perfusion Summary: Normal Conclusion Normal pharmacologic nuclear stress test. Global LV Function: Normal Stress ECG Summary: Normal LV Perfusion Summary: Normal
--- NOTE | 2024-11-06 16:49 | HMCSR ---
APPROVED REPORT EXAM: Two-dimensional and M-mode echocardiogram with Doppler and color Doppler. INDICATION ICD: Assess left ventricular function. 2D Dimensions RVDd3.8 cmLVEF(%)65.9 (>50%)LVEF(%, simp.)63 % IVSd0.8 (0.7-1.1cm)FS(%)36 %LA ESV INDEX (BP)43.43 mL/m2 LVDd4.5 (3.8-5.6cm)LA (2D)3.8 (1.6-4.0cm) PWd1.0 (0.7-1.1cm)Ao Root(2D)2.8 (2.0-3.7cm) IVSs1.2 cmLVOT diam2.0 (1.8-2.4cm) LVDs2.9 (2.5-4.0cm)IVC diam2.1 cm PWs1.4 cm Deformation Strain Apical 4-20.0 % Apical 2-21.0 % Apical 3-22.0 % Global Strain-21.0 % M-Mode Dimensions EPSS0.7 cm LA (MM)4.5 (1.6-4.0cm) Ao Root(MM)2.7 (2.0-3.7cm) Aortic Valve AoV Vmax1.3 m/Liana Peak GR6.5 mmHgLVOT Vmax1.2 m/s AoV VTI0.3 mAo Mean GR3.9 mmHgLVOT VTI0.26 m BIN (VMAX)2.6 cm2AVA (VTI) 2.6 cm2 Mitral Valve MV E Rzit691.0 cm/sDECEL Gdvb360 ms MV A Vmax70.8 cm/sP 1/2 T42 ms E/A ratio1.5MVA (PHT)5.2 cm2 TDI E/E' Nzbbbx62.9E/E' Zwxopdk34.9 Medial E' Peak V7.00 cm/sLateral E' Peak V7.00 cm/s Pulmonary Valve PV Vmax1.0 m/s Tricuspid Valve TR Vmax2.9 m/sRAP (EST) 8 rgEuRHLE90.8 mmHg TR Peak GR34.8 mmHg Left Ventricle The left ventricle is normal size. GLS -21.0%. There is normal LV segmental wall motion. There is nor mal left ventricular wall thickness. LVEF is 60-65%. 3D volume EF 63%. The left ventricular diastolic function is normal. Right Ventricle The right ventricle is normal size. The right ventricular systolic function is normal. Atria The left atrium size is normal. The right atrium size is normal. Aortic Valve The aortic valve is normal in structure. Trace of aortic regurgitation is present. There is no aortic valvular stenosis. Mitral Valve The mitral valve is normal in structure. There is no mitral valve regurgitation noted. There is no mi tral valve stenosis. Tricuspid Valve The tricuspid valve is normal in structure. There is trivial tricuspid valve regurgitation noted. Pulmonic Valve The pulmonary valve is normal in structure. There is trace of pulmonic valvular regurgitation. Great Vessels The aortic root is normal in size. The IVC is normal in size and collapses >50% with inspiration. Pericardium There is no pericardial effusion. Other Information Quality : Adequate Conclusion LVEF is 60-65%. 3D volume EF 63%. The left ventricular diastolic function is normal. GLS -21.0%. There is normal LV segmental wall motion. There is trivial tricuspid valve regurgitation noted.
--- NOTE | 2024-11-06 18:00 | NUR ---
PER DR RFANCES CLEARED FROM CARDIOLOGY STAND POINT TO FOLLOW UP THE DAY AFTER DISCHARGE.
--- NOTE | 2024-11-06 21:43 | NUR ---
REPORT GIVEN TO JUANITA VELASCO
[2024-11-06 21:55] VITALS: O2SAT 95
--- NOTE | 2024-11-06 21:55 | NUR ---
Pt arrived to 224 via stretcher. Assisted pt in transferring to bed. Educated and orientated pt to room and how to use the call light, verbalized understanding. Left bed low, locked, rails upx2, and with call light in reach.
[2024-11-06 23:54] VITALS: BP 143/73; PULSE 63; RESP 18; TEMP 98.5
[2024-11-07 03:38] VITALS: BP 149/72; PULSE 60; RESP 18; TEMP 97.8
--- NOTE | 2024-11-07 07:15 | PN ---
[facility] Cardiology Progress Note CARDIOLOGY PROGRESS NOTE NOVEMBER 07, 2024 Problems: 1. Near-syncope 2. Abnormal EKG with septal Q-waves in V1 V2 3. Cirrhosis when 4. Pancytopenia 5. Hypothyroidism 6. Hypertension 7. Atrophic kidney The patient was admitted with feeling of dizziness and near-syncope. At times there has been described her staring off into space. A 2D echo shows normal systolic LV function with no significant valvular disease. Her EKG showed septal Q-waves in V1 V2 however her Cardiolite stress test shows no evidence of prior infarct and no evidence of ischemia. Again this demonstrates normal systolic LV function. While here in the hospital she has had no arrhythmias. She did have a drop in blood pressure of about 15 mm when she stands up. For this reason I would recommend that her losartan be reduced from b.i.d. dosing to bedtime only. From my standpoint she can be discharged home and follow up with her primary physician as an outpatient. No further cardiology workup is planned. If she continues to be symptomatic I would recommend Neurology consultation and workup for possible petit mal seizures. Transfer test CADE FRANCES MD Nov 07, 2024 07:15
[2024-11-07 07:25] VITALS: O2SAT 95
[2024-11-07 08:00] VITALS: BP 143/72; PULSE 58; RESP 17; TEMP 98.3
[2024-11-07] MEDS ORDERED: LOSA100T59 PO (10:42)
[2024-11-07] MEDS ORDERED: MECL-226 PO (11:25)
--- NOTE | 2024-11-07 11:31 | DS ---
Discharge Summary Hospital Course Summary: 64-year-old female with past medical history of essential hypertension, hyperlipidemia, liver cirrhosis, osteoarthritis, GERD, who presented to [facility] ED earlier today brought by EMS for concerns of dizziness. Patient reports earlier in the day when she woke up she began to experience some dizziness, and near-syncope episode. Patient did not lose consciousness. Patient denied chest pain shortness breath fever chills nausea vomiting or diaphoresis. Patient states she is followed closely in the outpatient setting by her primary upkeep worker Dr. Gardner who has scheduled her for some cardiac exam is in the coming weeks. She states her symptoms of dizziness continued, and progressively worsened this morning therefore she decided to come to the hospital for further evaluation. Upon arrival to ED she was noted afebrile, blood pressure 176/84, heart rate 88, respirations 18, O2 saturation 97% on room air. Further evaluation lab significant for WBCs 2.4, H&H 11.3 and 34.2, platelet count 51, BNP of 669, PT of 13.2, INR of 1.2. CXR revealed mild pulmonary vascular congestion. Head CT with no acute findings. EKG revealed NSR, with prolonged TX interval, LVH. In the ED patient was administered one time dose of IV hydralazine, placed on IVF. While in the hospital, she was evaluated by upkeep worker who recommended stress test for which was done on 11/06/[address] Ayers's recommendation. The results were unremarkable hence she was cleared from the cardiac standpoint. She did have soft blood pressure readings for which he recommended to decrease losartan 100 mg twice a day to once a day at bedtime. He also recommended that if patient continues with symptoms, he recommends for her to follow up with Neurology to evaluate for petit mal seizures. Patient remained stable, no acute events reported overnight. She will be discharged today and recommended to follow up with her PCP in 2-3 days. Patient is stable on this evaluation and maybe able to be discharged home. Court Magistrate(s): Dr. Gardner- Cardiology Procedure(s): [facility] [address] [place] [address] IMAGING REPORT Signed PATIENT: JANE OKEEFE MR#: [id number] : 1960 SEX: F AGE: 64 LOCATION: [facility]IP ORDER 1534 STATUS: ADM IN REPORT#: [id number] SERVICE 1529 REASON: Assess LV function ORDERING PHYSICIAN: DELFINA BOWMAN PROCEDURE: ECHO CMP - ECHO 2-D COMPLETE APPROVED REPORT EXAM: Two-dimensional and M-mode echocardiogram with Doppler and color Doppler. INDICATION ICD: Assess left ventricular function. 2D Dimensions RVDd 3.8 cm LVEF(%) 65.9 (>50%) LVEF(%, simp.) 63 % IVSd 0.8 (0.7-1.1cm) FS(%) 36 % LA ESV INDEX (BP) 43.43 mL/m2 LVDd 4.5 (3.8-5.6cm) LA (2D) 3.8 (1.6-4.0cm) PWd 1.0 (0.7-1.1cm) Ao Root(2D) 2.8 (2.0-3.7cm) IVSs 1.2 cm LVOT diam 2.0 (1.8-2.4cm) LVDs 2.9 (2.5-4.0cm) IVC diam 2.1 cm PWs 1.4 cm Deformation Strain Apical 4 -20.0 % Apical 2 -21.0 % Apical 3 -22.0 % Global Strain -21.0 % M-Mode Dimensions EPSS 0.7 cm LA (MM) 4.5 (1.6-4.0cm) Ao Root(MM) 2.7 (2.0-3.7cm) Aortic Valve AoV Vmax 1.3 m/s Ao Peak GR 6.5 mmHg LVOT Vmax 1.2 m/s AoV VTI 0.3 m Ao Mean GR 3.9 mmHg LVOT VTI 0.26 m BIN (VMAX) 2.6 cm2 BIN (VTI) 2.6 cm2 Mitral Valve MV E Vmax 104.0 cm/s DECEL Time 143 ms MV A Vmax 70.8 cm/s P 1/2 T 42 ms E/A ratio 1.5 MVA (PHT) 5.2 cm2 TDI E/E' Medial 14.9 E/E' Lateral 14.9 Medial E' Peak V 7.00 cm/s Lateral E' Peak V 7.00 cm/s Pulmonary Valve PV Vmax 1.0 m/s Tricuspid Valve TR Vmax 2.9 m/s RAP (EST) 8 mmHg RVSP 42.8 mmHg TR Peak GR 34.8 mmHg Left Ventricle The left ventricle is normal size. GLS -21.0%. There is normal LV segmental wall motion. There is normal left ventricular wall thickness. LVEF is 60-65%. 3D volume EF 63%. The left ventricular diastolic function is normal. Right Ventricle The right ventricle is normal size. The right ventricular systolic function is normal. Atria The left atrium size is normal. The right atrium size is normal. Aortic Valve The aortic valve is normal in structure. Trace of aortic regurgitation is present. There is no aortic valvular stenosis. Mitral Valve The mitral valve is normal in structure. There is no mitral valve regurgitation noted. There is no mitral valve stenosis. Tricuspid Valve The tricuspid valve is normal in structure. There is trivial tricuspid valve regurgitation noted. Pulmonic Valve The pulmonary valve is normal in structure. There is trace of pulmonic valvular regurgitation. Great Vessels The aortic root is normal in size. The IVC is normal in size and collapses >50% with inspiration. Pericardium There is no pericardial effusion. Other Information Quality : Adequate Conclusion LVEF is 60-65%. 3D volume EF 63%. The left ventricular diastolic function is normal. GLS -21.0%. There is normal LV segmental wall motion. There is trivial tricuspid valve regurgitation noted. DICTATED BY: TANI CARLSON MD DATE: 11/06/24 0732 ELECTRONICALLY SIGNED BY: TANI CARLSON MD DATE: 11/06/24 16[address] [place] [id number] [place] [id number] IMAGING REPORT Signed PATIENT: JANE OKEEFE MR#: [id number] : 1960 SEX: F AGE: 64 LOCATION: [facility]IP ORDER 47 STATUS: ADM IN REPORT#: [id number] SERVICE 0600 REASON: Silent anteroseptal IN ORDERING PHYSICIAN: CADE GARDNER MD PROCEDURE: CARD LINUS - NM LEXISCAN CARDIOLITE APPROVED REPORT Height: 5 ft 0in Weight: 100 lbs TEST INDICATIONS Silent Anteroseptal IN The imaging protocol used to acquire images was Rest Tc-99m/stress Tc-99m 1 day Consent: The procedure was explained and understood by the patient. Informerd consent was witnessed by Kaleigh Zepeda RN First, low dose rest was performed then high dose stress. RESTING DATA: The resting ekg shows: n, NSR Rest SPECT myocardial perfusion imaging was performed in supine position minutes following the intravenous injection of 11.5 mCi of Tc-99 Sestamibi. Time of rest injection: 06:30: Date: 11/06/2024 PHARMACOLOGIC STRESS: Pharmacologic stress test was performed by injecting regadenoson 0.4 mg IV push followed by the intravenous injection of 29 mCi of Tc-99 Sestamibi. Time of stress injection: 09:00: Date: 11/06/2024 Heart Rate at time of stress injection: 70 bpm. Gated Stress SPECT was performed 60 minutes after stress injection. The images were gated to evaluate regional wall motion and calculate left ventricular ejection fraction. STRESS DETAILS Reason for Termination: Infusion complete Stress Symptoms: Dyspnea Max HR Achieved: 83 bpm % of APMHR Achieved: 63 Max Blood Pressure: 169/63 mmHg Stress ECG: NSR LEFT VENTRICLE The left ventricular ejection fraction was calculated to be 75%.TID = 1.10. LV PERFUSION The rest and stress images show normal perfusion. IMPRESSION Normal pharmacologic nuclear stress test. Global LV Function: Normal Stress ECG Summary: Normal LV Perfusion Summary: Normal Conclusion Normal pharmacologic nuclear stress test. Global LV Function: Normal Stress ECG Summary: Normal LV Perfusion Summary: Normal DICTATED BY: TANI CARLSON MD DATE: 11/06/24 0807 ELECTRONICALLY SIGNED BY: TANI CARLSON MD DATE: 11/06/[address] [place] [id number] IMAGING REPORT Signed PATIENT: JANE OKEEFE MR#: [id number] : 1960 SEX: F AGE: 64 LOCATION: [facility] ORDER 153 STATUS: ADM IN [facility] REPORT#: [id number] SERVICE 152 REASON: Near-syncope ORDERING PHYSICIAN: DELFINA BOWMAN PROCEDURE: CAROTID - US CAROTID DUPLEX US CAROTID DUPLEX HISTORY: Near syncope COMPARISON: None TECHNIQUE: Duplex carotid arterial Doppler ultrasound study was performed. FINDINGS: The common, internal and external carotid arteries are visualized. The peak systolic velocities of right common carotid artery is 107 centimeters per second, right internal carotid artery is 129 centimeters per second, right external carotid artery is 117 centimeters per second, and right vertebral artery is 95 centimeters per second. Right internal carotid artery to right common carotid artery ratio is 1.2. Right vertebral artery is seen with antegrade flow. The peak systolic velocities of left common carotid artery is 125 centimeters per second, left internal carotid artery is 155 centimeters per second, left external carotid artery is 168 centimeters per second, and left vertebral artery is 87 centimeters per second. Left internal carotid artery to left common carotid artery ratio is 1.2. Left vertebral artery is seen with antegrade flow. There are bilateral echogenic plaques. IMPRESSION: 1. No hemodynamically significant lesion is seen of either extracranial carotid artery system. DICTATED BY: REJI WHITNEY MD DATE: 11/05/241609 ELECTRONICALLY SIGNED BY: REJI WHITNEY MD DATE: 11/05/24 [address] [place] [id number] IMAGING REPORT Signed PATIENT: JANE OKEEFE MR#: [id number] : 1960 SEX: F AGE: 64 LOCATION: [facility]IP ORDER 153 STATUS: ADM IN [facility] REPORT#: [id number] SERVICE 152 REASON: Near-syncope ORDERING PHYSICIAN: DELFINA BOWMAN PROCEDURE: CAROTID - US CAROTID DUPLEX US CAROTID DUPLEX HISTORY: Near syncope COMPARISON: None TECHNIQUE: Duplex carotid arterial Doppler ultrasound study was performed. FINDINGS: The common, internal and external carotid arteries are visualized. The peak systolic velocities of right common carotid artery is 107 centimeters per second, right internal carotid artery is 129 centimeters per second, right external carotid artery is 117 centimeters per second, and right vertebral artery is 95 centimeters per second. Right internal carotid artery to right common carotid artery ratio is 1.2. Right vertebral artery is seen with antegrade flow. The peak systolic velocities of left common carotid artery is 125 centimeters per second, left internal carotid artery is 155 centimeters per second, left external carotid artery is 168 centimeters per second, and left vertebral artery is 87 centimeters per second. Left internal carotid artery to left common carotid artery ratio is 1.2. Left vertebral artery is seen with antegrade flow. There are bilateral echogenic plaques. IMPRESSION: 1. No hemodynamically significant lesion is seen of either extracranial carotid artery system. DICTATED BY: REJI WHITNEY MD DATE: 11/05/24 161 ELECTRONICALLY SIGNED BY: REJI WHITNEY MD DATE: 11/05/24 161 [place] [address] IMAGING REPORT Signed PATIENT: JANE OKEEFE MR#: [id number] : 1960 SEX: F AGE: 64 LOCATION: [facility] ORDER 1103 STATUS: [facility] REPORT#: [id number] SERVICE 1101 REASON: dizzy ORDERING PHYSICIAN: BASSEM VANG DO PROCEDURE: CXR1VW - CHEST 1VW CHEST 1VW HISTORY: Dizziness COMPARISON: 05/08/2016 FINDINGS: A frontal projection of the chest was obtained. Mild bilateral pulmonary infiltrates are seen may be related to mild pulmonary vascular congestion with possible superimposed pneumonitis. The heart is borderline enlarged. Degenerative changes are seen. No evidence of aortic calcification is seen. IMPRESSION: 1. Mild bilateral pulmonary infiltrates are seen may be related to mild pulmonary vascular congestion with possible superimposed pneumonitis. DICTATED BY: REJI WHITNEY MD DATE: 11/05/24 1209 ELECTRONICALLY SIGNED BY: REJI WHITNEY MD DATE: 11/05/24 1211 Assessment/Plan: Discharge Diagnoses: Near-syncope POA Abnormal EKG with septal Q-waves in V1 and V2 Pulmonary edema POA Elevated BNP POA Liver cirrhosis POA Pancytopenia POA Essential hypertension POA Hyperlipidemia POA Atrophic kidney Admitting diagnoses: Near-syncope POA Pulmonary edema POA Elevated BNP POA Liver cirrhosis POA Pancytopenia POA Essential hypertension POA Hyperlipidemia POA Discharge Instructions: Discharged home and follow up with PCP in 2-3 days Follow up with upkeep worker in 1-2 weeks Follow-up with Neurology if symptoms continues Home Medications: Active Scripts Meclizine HCl (Meclizine HCl) 12.5 Mg Tablet, 1 TAB PO TID for dizziness for 10 Days, #30 TAB 0 [facility]/24 Losartan Potassium (Losartan Potassium) 100 Mg Tablet, 1 TAB PO HS for 30 Days, #30 TAB 0 Refills Prov:[facility] 11/07/24 Reported Medications Isosorbide Mononitrate (Isosorbide Mononitrate) 20 Mg Tablet, 20 MG PO DAILY, TAB 11/30/17 Omeprazole (Omeprazole) 20 Mg Capsule.dr, 20 MG PO DAILY, CAP 11/30/17 Cyanocobalamin (Vitamin B-12) (Vitamin B-12) 1,000 Mcg Capsule, 1000 MCG PO DAILY, CAP 11/30/17 Cholecalciferol (Vitamin D3) (Vitamin D-3) 2,000 Unit Capsule, 2000 UNIT PO DAILY, CAP 11/30/17 Levothyroxine Sodium (Levothroid/Synthroid) 75 Mcg Tab, 75 MCG PO DAILY, TAB 11/30/17 Lactulose (Lactulose) 20 Gm/30 Ml Solution, 20 GM PO DAILY, ML 01/07/16 Propranolol HCl (Propranolol HCl) 20 Mg Tablet, 20 MG PO BID, TAB 01/07/16 Amlodipine Besylate (Amlodipine Besylate) 10 Mg Tablet, 10 MG PO DAILY, TAB 01/07/16 Folic Acid (Folic Acid) 1 Mg Tablet, 1 MG PO DAILY, TAB 01/07/16 Discontinued Reported Medications Losartan Potassium (Losartan Potassium) 100 Mg Tablet, 100 MG PO DAILY, TAB 01/07/16 Time spent arranging discharge: 31-60 minutes ATTESTATION BY PHYSICIAN I have seen and examined the patient. I reviewed the documentation, medical decision making, and treatment plan as noted by the mid-level provider above. I agree with the findings and plan of care. YARON LOPEZ MD, [facility] Nov 07, 2024 11:31
--- NOTE | 2024-11-07 11:35 | NUR ---
PT WAS TAKEN TO PRIVATE VEHICLE BY W/C. APPOINTMENTS WERE MADE AND ADVISED PT THAT SHE NEEDED TO SEE PCP FOR NEUROLOGICAL ASSESSMENT. PT AND FAMILY MEMBER VERBALIZED UNDERSTANDING.
== END 2024-11-07 11:50 | disposition home or self-care (01) ==
LOC: EDH 10:47 → EDHIP 10:48 → INTOOBSV 10:48 → UNDOADMIN 14:52 → EDHIP 14:52 → 2DH 11-06 20:14
PROVIDERS: ADMIT Internal Medicine; ATTEND Internal Medicine
DX: R55 Syncope and collapse (principal); J81.1 Chronic pulmonary edema; K74.60 Unspecified cirrhosis of liver; D61.818 Other pancytopenia; R94.31 Abnormal electrocardiogram [ECG] [EKG]; R79.89 Other specified abnormal findings of blood chemistry; I10 Essential (primary) hypertension; E78.5 Hyperlipidemia, unspecified; K21.9 Gastro-esophageal reflux disease without esophagitis; M19.90 Unspecified osteoarthritis, unspecified site; E11.9 Type 2 diabetes mellitus without complications; E78.00 Pure hypercholesterolemia, unspecified; I16.0 Hypertensive urgency; N26.1 Atrophy of kidney (terminal); D72.825 Bandemia; E03.9 Hypothyroidism, unspecified; Z79.899 Other long term (current) drug therapy
CPT/HCPCS: 99291; 96361; 93880; 96374; 70450; 96375; 71045; 82550; 84484; 80048; 83880; 85025; 85610; 36415; 93005; 78452; 93306; 81003; 93017; 93356; 96376 ×2; 76376; J3490 ×4; J0360 ×2; J2405; J2785; A9500 ×2; G0378; A4600

== ENCOUNTER 2025-04-08 08:22 | Day surgery (SDC) | payer MEDICAID ==
[~2025-04-08] VITALS: Ht 152.4 cm; Wt 40.8 kg
[2025-04-08] VITALS (14 sets, daily range): BP systolic 137–165; BP diastolic 60–75; PULSE 68–80; RESP 15–19; TEMP 97.1–97.9
[~2025-04-08 08:22] MED LIST changes: +AMLO-257 PO; -AMLO-258 PO; +AMOX1TAB16 PO; -CHOL200074 PO; -CYAN-35 PO; +CYAN250010 PO; +ERGO500093 PO; +FOLI1 PO; -FOLI1TAB15 PO; +HYDR25SU11 PR; -ISOS-58 PO; -LEVO75 PO; +LEVO75CA6 PO; -OMEP20CA12 PO; +PANT40TA54 PO
[2025-04-08] MEDS ORDERED: IOHEXOL-350 50ML VIAL IV ONE (09:57)
[2025-04-08] MEDS: 0.9%NACL 1000ML 1,000 ML IV ONE (10:18)
[2025-04-08] MEDS ORDERED: SUCCINYLCHOLINE CHLORIDE 20 MG/ML 10 ML VIAL ONE (11:42)
[2025-04-08] MEDS: INDOMETHACIN 100 MG SUPP.RECT RC ONE (11:55)
--- NOTE | 2025-04-11 16:16 | HMCIMG ---
ERCP BILI/PANC DUCT HISTORY: OBSTRUCTION OF BILE DUCT,ABNORMAL FINDINGS ON DIAGNOSTIC IMAGING OF LIVER TECHNIQUE: ERCP BILI/PANC DUCT FINDINGS/IMPRESSION: Fluoroscopic image/s obtained for procedure documentation. Please see operative report for more details 15 cc of Omnipaque 350 was injected. Fluoroscopy time 1.24 minutes
== END 2025-04-08 14:03 | disposition home or self-care (01) ==
LOC: DAH 08:22 → ENDO 08:22
PROVIDERS: ATTEND Internal Medicine Gastroenterology
DX: R93.2 Abnormal findings on diagnostic imaging of liver and biliary tract (principal); K80.50 Calculus of bile duct without cholangitis or cholecystitis without obstruction; R74.01 Elevation of levels of liver transaminase levels; K74.01 Hepatic fibrosis, early fibrosis; K74.60 Unspecified cirrhosis of liver; I85.11 Secondary esophageal varices with bleeding; I10 Essential (primary) hypertension; K21.9 Gastro-esophageal reflux disease without esophagitis; E03.9 Hypothyroidism, unspecified; Z98.42 Cataract extraction status, left eye; Z98.41 Cataract extraction status, right eye; Z79.899 Other long term (current) drug therapy
CPT/HCPCS: 43262; 43244; 43264; 43273; 74328; J0330; J7030; J2704; J2405; Q9967; A4215; A4657; C1769; C1773; 74330; J3490

== ENCOUNTER 2025-04-09 04:10 | Inpatient (IN) | payer MEDICAID ==
[~2025-04-09] VITALS: Ht 152.4 cm; Wt 39.9 kg
[~2025-04-09 04:10] MED LIST changes: -AMOX1TAB16 PO; -HYDR25SU11 PR
--- NOTE | 2025-04-09 04:21 | ERN ---
ED Note History of Present Illness Stated Complaint: C/O VOMITING BLOOD Chief Complaint: Hematemesis/Vomiting Blood Time Seen by MD: 04:16 Dictation: This is a 65-year-old female with a cirrhosis of the liver diagnosed sometime in 2003 apparently unclear etiology has had multiple admissions in the past 6 months. Has been reported that she had esophageal banding done yesterday as outpatient and she started have vomitings blood that concerned them and EMS was activated and she was brought to the ER. She is a very poor historian extremely debilitated too weak even to talk. Information obtained from the spouse and from the charts. She denied any abdominal pain. No diarrhea. stated that she never drank any alcohol in her life Temperature 99.3 pulse 101 respirations 20 blood pressure 134/86 with a pulse oximetry of 97% on room air His chronic medical problems include Hypothyroidism , hypertension liver cirrhosis, thrombocytopenia, hypersplenism, portal hypertension, hyperlipidemia, renal cyst, splenomegaly, pancytopenia esophageal varices gallstones Allergies: Coded Allergies: No Known Drug Allergies (Unverified Allergy, Unknown, 01/07/16) Home Meds Active Scripts Losartan Potassium (Losartan Potassium) 100 Mg Tablet, 1 TAB PO HS for 30 Days, #30 TAB 0 Refills Prov:PARVEENYAN B AGPCNP 11/07/24 Reported Medications Ergocalciferol (Vitamin D2) (Vitamin D2) 1,250 Mcg (43529 Unit) Capsule, 1 CAP PO QWEEK Mondays02/17/25 Folic Acid (Folvite) 1 Mg Tab, 1 TAB PO BID 02/17/25 Amlodipine Besylate (Amlodipine Besylate) 5 Mg Tablet, 1 TAB PO DAILY 02/17/25 Cyanocobalamin (Vitamin B-12) (Vitamin B12) 2,500 Mcg Tablet, 1 TAB PO DAILY for 30 Days, #30 TAB 0 Refills 02/17/25 Levothyroxine Sodium (Levothyroxine) 75 Mcg Capsule, 1 TAB PO ACBKFST for 30 Days, #30 CAP 0 Refills 02/01/25 Pantoprazole Sodium (Pantoprazole Sodium) 40 Mg Tablet.dr, 40 MG PO DAILY, TAB 02/01/25 Lactulose (Lactulose) 20 Gm/30 Ml Solution, 20 GM PO DAILY, ML 01/07/16 Propranolol HCl (Propranolol HCl) 20 Mg Tablet, 20 MG PO BID, TAB 01/07/16 Discontinued Scripts Amoxicillin/Potassium Clav (Amox Tr-K Clv 875-125 mg Tab) 875 Mg-125 Mg Tablet, 1 TAB PO BID for 5 Days, #10 TAB 0 Refills Prov:RENEE SIBLEY MD 02/20/25 Hydrocortisone Acetate (Anucort-Hc) 25 Mg Supp.rect, 1 SUPP NH BID PRN for HEMORRHOIDS, #1 0 Refills Prov:RENEE SIBLEY MD 02/20/25 Past Medical History Past Medical History: Gallstones, Hypertension, Hypothyroid, Liver Disease Additional Past Medical Hx: Cirrhosis of the liver, cholelithiasis Surgical History: Appendectomy, Other Surgical History Other: small intestine sx Family History: Negative Social History: Negative History: Not Applicable RN Note Reviewed/Agreed w/PFSH: Yes Review of System Dictation Constitutional: Negative for fever,chills, and weight loss Eyes: Negative for injury, pain,redness, and discharge ENT: Negative for injury,pain or swelling Cardiovascular: Negative for chest pain, palpitations, and edema Respiratory: Negative for shortness of breath, cough, and wheezing, Abdomen/GI: Negative for abdominal pain, nausea, vomiting, diarrhea, and constipation positive for hematemesis Back: Negative for injury and pain : Negative for injury, bleeding and discharge MS/Extremity: Negative for injury and deformity Skin: Negative for rash, and discoloration Neuro: Negative for headache, weakness, numbness, tingling, and seizure Psych: Negative for suicide ideation, homicidal ideation, and hallucinations Initial Vital Sign VS Vital Signs Date Time Temp Pulse Resp B/P (MAP) Pulse Ox O2 Delivery O2 Flow Rate FiO2 04/09/25 04:14 99.3 101 20 134/86 97 Room Air 04/09/25 04:53 0 21 Physical Exam Dictation General: awake, alert, NAD extremely emaciated cachectic debilitated female Head/Face: Normocephalic, atraumatic Eyes: PERRL, EOMI, vision at baseline ENT: oral cavity clear, TMs clear, no signs of infection mild jaundice Neck: Trachea midline, supple, no nuchal rigidity Cardiovascular: RRR, normal S1/S2, No MRGs, no JVD Respiratory: CTAB, no respiratory distress, No rales or wheezes Abdomen: Soft, non-tender, non-distended, normal bowel sounds, no guarding or rebound. Skin: Warm, dry, normal turgor, no rash MS/Extremity: Pulses equal, no cyanosis, neurovascular intact, FROM Neuro: COAx4, GCS 15, strength 5/5, CN 2-12 intact, normal cerebellar exam, normal gait, Psych: Normal behavior, mood, and affect normal Extremities-trace edema without any palpable cords, Homans sign is negative Results (Laboratory/Radiology) Laboratory/Radiology Laboratory Tests Test 04/09/25 04:26 White Blood Count 4.8 K/uL (4.8-10.8) Red Blood Count 3.64 MIL/uL (4.00-5.50) L Hemoglobin 11.8 g/dL (12.0-16.0) L Hematocrit 36.3 % (36-48) Mean Corpuscular Volume 99.7 fL (79-99) H Mean Corpuscular Hemoglobin 32.4 pg (27.0-33.0) Mean Corpuscular Hemoglobin Concent 32.5 g/dL (32.0-36.0) Red Cell Distribution Width 15.3 % (11.0-15.5) Platelet Count 52 K/uL (130-400) L Mean Platelet Volume 11.6 fL (7.5-10.5) H Immature Granulocyte % (Auto) 0.2 % (0-1) Neutrophils (%) (Auto) 90.2 % (40.0-77.0) H Lymphocytes (%) (Auto) 7.1 % (21.0-51.0) L Monocytes (%) (Auto) 2.3 % (3.0-13.0) L Eosinophils (%) (Auto) 0.0 % (0.0-8.0) Basophils (%) (Auto) 0.2 % (0.0-5.0) Neutrophils # (Auto) 4.3 K/uL (1.8-7.7) Lymphocytes # (Auto) 0.3 K/uL (1.0-4.8) L Monocytes # (Auto) 0.1 K/uL (0.1-1.0) Eosinophils # (Auto) 0.00 K/uL (0.00-0.70) Basophils # (Auto) 0.01 K/uL (0.00-0.20) Absolute Immature Granulocyte (auto 0.01 K/uL (0-1) Nucleated Red Blood Cells 0.0 % (0.0-0.19) White Cell Morphology Comment See comments Platelet Morphology Comment DECREASED Prothrombin Time 13.0 SEC (9.6-11.6) H Prothromb Time International Ratio 1.25 (0.85-1.15) H Activated Partial Thromboplast Time 27.0 SEC (26.3-35.5) Sodium Level 142 mmol/L (136-145) Potassium Level 4.1 mmol/L (3.5-5.1) Chloride Level 107 mmol/L (101-111) Carbon Dioxide Level 26 mmol/L (21-32) Blood Urea Nitrogen 16 mg/dL (7-18) Creatinine 1.0 mg/dL (0.5-1.0) Glomerular Filtration Rate Calc 62 mL/min (>90) Random Glucose 113 mg/dL (70-105) H Total Calcium 9.1 mg/dL (8.5-10.1) Total Bilirubin 5.6 mg/dL (0.2-1.0) H Direct Bilirubin 2.8 mg/dL (0.0-0.3) H Aspartate Amino Transf (AST/SGOT) 93 U/L (10-37) H Alanine Aminotransferase (ALT/SGPT) 51 U/L (12-78) Alkaline Phosphatase 243 U/L (50-136) H Total Protein 7.0 g/dL (6.0-8.3) Albumin 3.1 g/dL (3.5-5.0) L Labs Reviewed?: Yes ED Course ED Course Orders Procedure Category Date Status Time Cbc With Differential LAB 04/09/25 Complete 04:17 Type And Screen BBK 04/09/25 Complete 04:17 Urinalysis Profile LAB 04/09/25 Logged 04:17 12 Lead Ekg Tracing- EKG 04/09/25 Complete Technical 04:17 0.9%Nacl 1000ml (Ns PHA 04/09/25 In Process 1000ml) 04:30 Morphine 4mg Syg PHA 04/09/25 Complete (Morphine 4mg Syg) 04:30 Ondansetron 4mg Inj PHA 04/09/25 Complete (Zofran 4mg Inj) 04:30 Pantoprazole 40mg Inj PHA 04/09/25 Complete (Protonix 40mg Inj 04:30 Basic Metabolic Panel LAB 04/09/25 Complete 04:17 Pt And Ptt LAB 04/09/25 Complete 04:18 Hepatic Function Panel LAB 04/09/25 Complete 04:17 Chest 1vw RAD 04/09/25 Resulted 04:44 Ceftriaxone 1g Vial PHA 04/09/25 Complete (Rocephine 1g Inj) 05:30 Phytonadione (Vitamin PHA 04/09/25 Complete K 10mg/1ml Adult V 05:30 Edm Admit Bridge Order ADM 04/09/25 Verified 06:46 Current Medications Medications (Trade) Dose Ordered Sig/Erika Route PRN Reason Start Time Stop Time Status Last Admin Dose Admin Ceftriaxone Sodium (ROCEphine 1G INJ) 1 gm ONCE ONCE IVPB 04/09/25 05:30 04/09/25 05:43 DC 04/09/25 06:12 Morphine Sulfate (morPHINE 4MG SYG) 4 mg ONCE ONCE IVP 04/09/25 04:30 04/09/25 04:31 DC 04/09/25 04:31 Ondansetron HCl (zoFRAN 4MG INJ) 4 mg ONCE ONCE IVP 04/09/25 04:30 04/09/25 04:31 DC 04/09/25 04:31 Pantoprazole Sodium (PROTonix 40MG INJ) 80 mg ONCE ONCE IVP 04/09/25 04:30 04/09/25 04:31 DC 04/09/25 04:31 Phytonadione 10 mg/Sodium Chloride 51 ml @ 100 mls/hr ONCE ONCE IVPB 04/09/25 05:30 04/09/25 06:00 DC 04/09/25 06:12 Sodium Chloride 1,000 ml @ 125 mls/hr ONCE ONCE IV 04/09/25 04:30 04/09/25 12:29 04/09/25 04:31 Vital Signs Date Time Temp Pulse Resp B/P (MAP) Pulse Ox O2 Delivery O2 Flow Rate FiO2 04/09/25 04:53 98.4 118 18 126/66 96 Room Air* 0 21 04/09/25 04:14 99.3 101 20 134/86 97 Room Air We will perform diagnostic labs, advanced imaging and administer medications according to the patient's complaint. Once the results are available, will review and personally interpreted the labs to rule out any acute life- threatening emergency the trach require immediate intervention and treatment. I will then re-evaluate the patient after treatment and diagnostic exams have return to determine whether the patient requires any further testing, can safely be discharged home or need further admission to hospital for additional treatment and evaluation. 5:00 a.m. labs reviewed CBC showed a white count of 4.8 hemoglobin 11.8 platelets 43941 BNP 7 is significant for a BUN and creatinine of 16 and 1.0. LFTs are very abnormal with increased bilirubin alk-phos etcetera Chest x-ray shows cardiomegaly bilateral haziness Empiric antibiotics serial hemoglobin hematocrit and transfuse PRBC as needed I recommended admission to the hospital in view of hemoptysis pancytopenia and esophageal banding procedure 6:45 a.m. patient accepted by [facility] provider for hospitalist group for admission and further management Medical Decision Making MDM Differential diagnosis: Esophageal variceal bleeding or postprocedure bleeding, possible gastric varices, peptic ulcer disease, gastritis in the setting of pancytopenia Rationale: Tests considered and ordered secondary to shared decision making include: labs, ECG and radiology Previous outside records reviewed: Old ER visits. Risk of complication and/or morbidity or mortality of patient management: None Medications-Per medication reconciliation Need for hospitalization: Patient does meet criteria for hospitalization. Need for emergency major/minor surgery: No There are no social concerns with this patient. Prescription drug management Prescriptions will include symptomatic care Patient's prior external medical records from other ER visits were reviewed by me as indicated. Prior testing and results from previous visits were reviewed. Prior tests were taken into account with medical decision making and resource utilization, independent historian/historians were used to obtain complete medical history. I independently interpreted the test that were performed, results were reviewed by me and considered findings on radiology if ordered. Medical management and examination interpretation discussions were had by me with other qualified healthcare professionals as indicated for the patient's care. Problem List Problem List: (1) Hematemesis (2) GI bleed (3) Liver cirrhosis (4) Esophageal varices (5) Pancytopenia DX & DISP Disposition: Inpatient Decision to Admit Time: 04:20 Departure Impression: Primary Impression: Hematemesis Additional Impressions: GI bleed, Liver cirrhosis, Esophageal varices, Pancytopenia, Abnormal transaminases, Hyperbilirubinemia Condition: Stable Additional Instructions: Patient was informed of all the diagnostic labs and procedures conducted in the emergency room today and demonstrated understanding of the results. I personally reviewed and interpreted all the diagnostic exams performed in the ER today. The patient will be admitted to the hospital for further treatment and evaluation. Disposition-admit to facility Condition-stable/guarded Course-uncertain at this time Pain status-decreased Assessment-exam unchanged Admission Certification- I certify that the patients status is appropriate and is based on my best clinical judgment and the patient's condition as documented in the medical records Referrals: SUSANA CORDOVA MD (PCP) DILLON LOO MD Apr 09, 2025 04:21
[2025-04-09] MEDS: 0.9%NACL 1000ML 1,000 ML IV ONE (04:31)
[2025-04-09 04:46] LABS: IMMATURE GRANULOCYTE ABSOLUTE 0.01 K/uL (0-1); NUCLEATED RED BLOOD CELLS 0.0 % (0.0-0.19); PLATELET COUNT (AUTO) 52 K/uL (130-400); RED BLOOD CELL COUNT(AUTO) 3.64 MIL/uL (4.00-5.50); RED CELL DISTRIBUTION WIDTH 15.3 % (11.0-15.5); WHITE BLOOD COUNT (AUTO) 4.8 K/uL (4.8-10.8)
[2025-04-09 04:52] LABS: CREATININE 1.0 mg/dL (0.5-1.0); GLOMERULAR FILTR. RATE CALC 62.0 mL/min (>90); GLUCOSE,RANDOM 113.0 mg/dL (70-105); SODIUM SERUM 142.0 mmol/L (136-145); UREA NITROGEN, BLOOD 16.0 mg/dL (7-18)
[2025-04-09 04:59] LABS: ASPARTATE AMINOTRANSFERASE 93.0 U/L (10-37); INR 1.25 (0.85-1.15); TOTAL PROTEIN, SERUM 7.0 g/dL (6.0-8.3)
[2025-04-09 05:30] LABS: PLATELET MORPHOLOGY COMMENT DECREASED
--- NOTE | 2025-04-09 05:57 | HMCIMG ---
EXAM: CR Chest, 1 view CLINICAL HISTORY: Hematemesis. Mild hypoxia. COMPARISON: Chest radiograph dated 02/01/2025. FINDINGS: Mild cardiomegaly and pulmonary vascular congestion. No acute infiltrate, effusion, or pneumothorax. No acute osseous abnormality. IMPRESSION: Mild cardiomegaly and pulmonary vascular congestion with interval worsening. /[place]
[2025-04-09] MEDS: PHYTONADIONE 10 MG in 0.9%NACL 50ML 50 ML IVPB ONE (06:12)
--- NOTE | 2025-04-09 06:31 | EKG ---
[facility] Test Date: 2025-04-09 Test Time: 04:33:52 Pat Name: JANE OKEEFE Department: [facility] Room: ED Gender: F Interventional Neuroradiologist: [id number] : 1960 Requested By: DILLON LOO Order Number: [id number] Reading MD: Karolina Le Measurements Intervals [place] Rate: 114 P: 0 MA: 143 QRS: -39 QRSD: 97 T: 109 QT: 339 QTc: 468 Interpretive Statements Sinus tachycardia LVH with secondary repolarization abnormality Inferior infarct, old Probable anterior infarct, age indeterminate Compared to ECG 02/01/2025 06:44:48 No significant change was found Electronically Signed On 04-09-2025 14:05:54 CDT by Karolina Le Please click the below link to view image of tracing.
--- NOTE | 2025-04-09 09:42 | HP ---
[facility] HISTORY AND PHYSICAL Date of Service: Apr 09, 2025 Time of Service: 09:41 HISTORY OF PRESENT ILLNESS: [ ] PCP: Prateek Burden MD CC; hematemenis post procedure esophageal banding This is a 65-year-old female that presents in ED having episodes of hematemenis post procedure; esophageal banding. Onset started 3:00 a.m. in the morning reports amount was moderate x2 episodes. Patient has underlying liver cirrhosis in her GI is Dr. Daquan Palencia. She decided to come to ED for further evaluation and treatment. Patient had another episode in ED labs were reviewed hemoglobin remained stable patient reports she was instructed on a clear liquid diet however we will keep her NPO until further recommendations by GI she denies abdominal pain shortness a breath dizziness chest pain. REVIEW OF SYSTEMS A 12 point ROS was obtained all relevant positives were documented otherwise ROS negative PAST MEDICAL HISTORY: [ ] Hypertension diabetes hyperlipidemia liver cirrhosis PAST SURGICAL HISTORY: [ ] Esophageal banding PAST SOCIAL HISTORY: [ ] Denies smoking tobacco products and alcohol use FAMILY HISTORY: [ ] Noncontributory Coded Allergies: No Known Drug Allergies (Unverified Allergy, Unknown, 01/07/16) PHYSICAL EXAM GENERAL APPEARANCE: The patient is awake, alert, and oriented, in no acute cardiopulmonary distress. NEUROLOGICAL: Cranial nerves II-XII grossly intact. Motor is 5/5 in bilateral upper and lower extremities proximal to distal. No sensory deficits. HEENT: Face is symmetric. Pupils are equal and reactive. Extraocular movements are intact. NECK: Supple. No JVD. No thyromegaly. No submental, submandibular, pre- /postauricular, occipital or supraclavicular lymphadenopathy. CHEST: Normal chest expansion. No Telemetry. LUNGS: Absence of any rales, rhonchi or any wheezing. CARDIOVASCULAR: Regular. S1 and S2 normal. No appreciable rubs, murmurs or gallops. ABDOMEN: Soft, nontender, and nondistended. There is no rebound, voluntary guarding, or rigidity. : Deferred. No Church. EXTREMITIES: Non-edematous and not cyanotic. No clubbing. Good capillary refill. SKIN: No skin breakdown. Vital Sign (Last 24 Hours) 04/09/25 07:27 Temp 99.0 Pulse 81 Resp 17 B/P (MAP) 131/58 Pulse Ox 91 O2 Delivery Room Air* O2 Flow Rate 0 FiO2 21 LABS: Laboratory: Test 04/09/25 04:26 Range/Units White Blood Count 4.8 4.8-10.8 K/uL Red Blood Count 3.64 L 4.00-5.50 MIL/uL Hemoglobin 11.8 L 12.0-16.0 g/dL Hematocrit 36.3 36-48 % Mean Corpuscular Volume 99.7 H 79-99 fL Mean Corpuscular Hemoglobin 32.4 27.0-33.0 pg Mean Corpuscular Hemoglobin Concent 32.5 32.0-36.0 g/dL Red Cell Distribution Width 15.3 11.0-15.5 % Platelet Count 52 L 130-400 K/uL Mean Platelet Volume 11.6 H 7.5-10.5 fL Immature Granulocyte % (Auto) 0.2 0-1 % Neutrophils (%) (Auto) 90.2 H 40.0-77.0 % Lymphocytes (%) (Auto) 7.1 L 21.0-51.0 % Monocytes (%) (Auto) 2.3 L 3.0-13.0 % Eosinophils (%) (Auto) 0.0 0.0-8.0 % Basophils (%) (Auto) 0.2 0.0-5.0 % Neutrophils # (Auto) 4.3 1.8-7.7 K/uL Lymphocytes # (Auto) 0.3 L 1.0-4.8 K/uL Monocytes # (Auto) 0.1 0.1-1.0 K/uL Eosinophils # (Auto) 0.00 0.00-0.70 K/uL Basophils # (Auto) 0.01 0.00-0.20 K/uL Absolute Immature Granulocyte (auto 0.01 0-1 K/uL Nucleated Red Blood Cells 0.0 0.0-0.19 % White Cell Morphology Comment See comments Platelet Morphology Comment DECREASED Prothrombin Time 13.0 H 9.6-11.6 SEC Prothromb Time International Ratio 1.25 H 0.85-1.15 Activated Partial Thromboplast Time 27.0 26.3-35.5 SEC Sodium Level 142 136-145 mmol/L Potassium Level 4.1 3.5-5.1 mmol/L Chloride Level 107 101-111 mmol/L Carbon Dioxide Level 26 21-32 mmol/L Blood Urea Nitrogen 16 7-18 mg/dL Creatinine 1.0 0.5-1.0 mg/dL Glomerular Filtration Rate Calc 62 >90 mL/min Random Glucose 113 H 70-105 mg/dL Total Calcium 9.1 8.5-10.1 mg/dL Total Bilirubin 5.6 H 0.2-1.0 mg/dL Direct Bilirubin 2.8 H 0.0-0.3 mg/dL Aspartate Amino Transf (AST/SGOT) 93 H 10-37 U/L Alanine Aminotransferase (ALT/SGPT) 51 12-78 U/L Alkaline Phosphatase 243 H 50-136 U/L Total Protein 7.0 6.0-8.3 g/dL Albumin 3.1 L 3.5-5.0 g/dL Current Medications Medications (Trade) Dose Ordered Sig/Erika Route PRN Reason Start Time Stop Time Status Last Admin Dose Admin Ceftriaxone Sodium (ROCEphine 1G INJ) 1 gm Q24H IVPB 04/10/25 07:30 04/20/25 07:29 Ondansetron HCl (zoFRAN 4MG INJ) 4 mg Q6H PRN IVP NAUSEA/VOMITING 04/09/25 07:30 05/09/25 07:29 Pantoprazole Sodium (PROTonix 40MG INJ) 40 mg BID IVP 04/09/25 21:00 05/09/25 20:59 DIAGNOSTICS / RADIOLOGY: [ ] ASSESSMENT: Hematemesis x2 episodes moderate amount postprocedure esophageal banding POA Failure to Thrive POA Chronic problems Diabetes, hypertension, hyperlipidemia PLAN: [ ] Admit: Medical-surgical floor condition: Guarded Status: Full code IVF: NS at 75 mL/hour NPO for now until seen by GI Consultants GI Antibiotics: Rocephin1 g daily We will monitor H&H trend to keep hemoglobin above 7.0 Labs cbc, cmp, mag+ in a.m. Replace electrolytes as needed as per protocol to keep potassium above 4.0 magnesium 2.0. Home medications pending to be reviewed by RN nurse. PRN: MEDICATIONS Tylenol 650 mg po every 4 hrs for fever zofran 4 mg IV every 6 hrs for n/v Hydralazine 5 mg IV every 4 hrs systolic pressure > 160 bowel regiment: lactulose 20 gm PO BID PRN constipation Pain management: Supportive measures: DVT ppx, GI ppx all questions answered time spent: > 35 min Supervising MD: Dr. Camden Gonzalez c/d This document was generated in part using voice recognition software, occasional wrong word or sound alike substitutions may have occurred due to the inherent limitations of voice recognition software. Read the chart carefully and recognize using context, where the substitutions have occurred. Although every effort was made to edit the content, legal administrator and typing errors may occur ATTESTATION BY PHYSICIAN I have seen and examined the patient. I reviewed the documentation, medical decision making, and treatment plan as noted by the mid-level provider above. I agree with the findings and plan of care. ELIZA THOMPSON MD ATTESTATION BY PHYSICIAN I have seen and examined the patient. I reviewed the documentation, medical decision making, and treatment plan as noted by the mid-level provider above. I agree with the findings and plan of care. ELIZA THOMPSON MD, ELIZABETH NP Apr 09, 2025 09:42
[2025-04-09 12:47] LABS: APPEARANCE,URINE CLOUDY (CLEAR); GLUCOSE, URINE (UA) NEGATIVE (NEGATIVE); LEUKOCYTE ESTERASE ,URINE 25 Leu/uL (NEGATIVE); NITRATE,URINE NEGATIVE (NEGATIVE); OCCULT BLOOD,URINE NEGATIVE (NEGATIVE)
[2025-04-09 12:49] LABS: ADD UA MICROSCOPIC YES
[2025-04-09 12:51] LABS: SQUAMOUS EPITHELIAL CELL,UR MOD /HPF (0-2)
--- NOTE | 2025-04-09 13:14 | CONS ---
GASTROENTEROLOGY CONSULTATION NOTE Date of Consultation: Apr 09, 2025 Time of Consultation: 13:09 History of Present Illness: [This is a 65-year-old female patient with past medical history for cirrhosis of the liver who presented with to the emergency room with complaints of hematemesis. Patient had undergone EGD with esophageal banding yesterday as an outpatient. Initial labs as follows: WBC 4.8, hemoglobin 11.8, platelets 52. CMP significant for total bilirubin of 5.6, direct bilirubin 2.8, AST 93, ALT 51, alkaline phos 243, albumin 3.1. PT 13.0, INR 1.25. Chest x-ray significant for mild cardiomegaly and pulmonary vascular congestion with interval worsening. On exam patient is resting in stretcher in the ER room nine in no acute distress. Respirations are even and unlabored with bilateral breath sounds. Abdomen is soft and nondistended, and nontender. Active bowel sounds are present. Plan of care discussed and will continue monitoring. ] Review of Systems: CONSTITUTIONAL: No malaise or change in sensation of wellbeing. ENMT: No rhinorrhea, otorrhea, sinus pain, ear ache. CARDIOVASCULAR: No angina, palpitations, orthopnea or paroxysmal dyspnea. RESPIRATORY: No SOB. GASTROINTESTINAL: No abdominal pain, nausea, vomiting, diarrhea, hematemesis, melena or change in the patient's habitual bowel movements consistency/number. GENITOURINARY: No dysuria, hematuria or change in bladder continence. MUSCULOSKELETAL: No new muscle pain or decrease in muscular strength. No new joint swelling, redness or tenderness. SKIN: No new rash. Past Medical History: [ ] Hypertension diabetes hyperlipidemia liver cirrhosis PAST SURGICAL HISTORY: [ ] Esophageal banding PAST SOCIAL HISTORY: [ ] Denies smoking tobacco products and alcohol use Coded Allergies: No Known Drug Allergies (Unverified Allergy, Unknown, 01/07/16) spouse agreed. Physical Exam: GEN: Awake, alert, oriented in person, time and place, and in no acute distress. HEENT: No rhinorrhea. Oral pharyngeal mucosa is pink, moist and within normal limits. CHEST: Inspection, palpation and percussion of the chest were unremarkable. Lung auscultation revealed normal breath sounds bilaterally. CARDIAC: PMI is within normal limits. Heart sounds are regular. ABD: Soft, non-tender and not distended. No peritoneal signs on palpation. No organomegaly. Normal bowel sounds. EXT: No cyanosis or clubbing. No edema. SKIN: Intact. No rashes. JOINTS: No evidence of synovitis or acute arthritis. NEURO: Alert and oriented to name, place and person. No focal motor deficits. Normal speech. Strength is normal. Vital Sign (Last 24 Hours) 04/09/25 07:27 Temp 99.0 Pulse 81 Resp 17 B/P (MAP) 131/58 Pulse Ox 91 O2 Delivery Room Air* O2 Flow Rate 0 FiO2 21 Laboratory: [ ] Laboratory: Test 04/09/25 12:00 04/09/25 04:26 Range/Units Urine Color DARK-YELLOW YELLOW Urine Appearance CLOUDY H CLEAR Urine pH 5.5 5.0-8.0 Urine Specific [place] 1.026 1.001-1.031 Urine Protein 10 H NEGATIVE mg/dL Urine Glucose (UA) NEGATIVE NEGATIVE mg/dL Urine Ketones 10 H NEGATIVE mg/dL Urine Occult Blood NEGATIVE NEGATIVE Urine Nitrate NEGATIVE NEGATIVE Urine Bilirubin 1 H NEGATIVE mg/dL Urine Urobilinogen 2.0 H 0.2-1.0 mg/dL Urine Leukocyte Esterase 25 H NEGATIVE Harjeet/uL Urine RBC 2-5 H 0-1 /HPF Urine WBC 6-10 H 0-1 /HPF Urine Squamous Epithelial Cells MOD 0-2 /HPF Urine Bacteria RARE None Seen /HPF White Blood Count 4.8 4.8-10.8 K/uL Red Blood Count 3.64 L 4.00-5.50 MIL/uL Hemoglobin 11.8 L 12.0-16.0 g/dL Hematocrit 36.3 36-48 % Mean Corpuscular Volume 99.7 H 79-99 fL Mean Corpuscular Hemoglobin 32.4 27.0-33.0 pg Mean Corpuscular Hemoglobin Concent 32.5 32.0-36.0 g/dL Red Cell Distribution Width 15.3 11.0-15.5 % Platelet Count 52 L 130-400 K/uL Mean Platelet Volume 11.6 H 7.5-10.5 fL Immature Granulocyte % (Auto) 0.2 0-1 % Neutrophils (%) (Auto) 90.2 H 40.0-77.0 % Lymphocytes (%) (Auto) 7.1 L 21.0-51.0 % Monocytes (%) (Auto) 2.3 L 3.0-13.0 % Eosinophils (%) (Auto) 0.0 0.0-8.0 % Basophils (%) (Auto) 0.2 0.0-5.0 % Neutrophils # (Auto) 4.3 1.8-7.7 K/uL Lymphocytes # (Auto) 0.3 L 1.0-4.8 K/uL Monocytes # (Auto) 0.1 0.1-1.0 K/uL Eosinophils # (Auto) 0.00 0.00-0.70 K/uL Basophils # (Auto) 0.01 0.00-0.20 K/uL Absolute Immature Granulocyte (auto 0.01 0-1 K/uL Nucleated Red Blood Cells 0.0 0.0-0.19 % White Cell Morphology Comment See comments Platelet Morphology Comment DECREASED Prothrombin Time 13.0 H 9.6-11.6 SEC Prothromb Time International Ratio 1.25 H 0.85-1.15 Activated Partial Thromboplast Time 27.0 26.3-35.5 SEC Sodium Level 142 136-145 mmol/L Potassium Level 4.1 3.5-5.1 mmol/L Chloride Level 107 101-111 mmol/L Carbon Dioxide Level 26 21-32 mmol/L Blood Urea Nitrogen 16 7-18 mg/dL Creatinine 1.0 0.5-1.0 mg/dL Glomerular Filtration Rate Calc 62 >90 mL/min Random Glucose 113 H 70-105 mg/dL Total Calcium 9.1 8.5-10.1 mg/dL Total Bilirubin 5.6 H 0.2-1.0 mg/dL Direct Bilirubin 2.8 H 0.0-0.3 mg/dL Aspartate Amino Transf (AST/SGOT) 93 H 10-37 U/L Alanine Aminotransferase (ALT/SGPT) 51 12-78 U/L Alkaline Phosphatase 243 H 50-136 U/L Total Protein 7.0 6.0-8.3 g/dL Albumin 3.1 L 3.5-5.0 g/dL Current Medications Medications (Trade) Dose Ordered Sig/Erika Route PRN Reason Start Time Stop Time Status Last Admin Dose Admin Ceftriaxone Sodium (ROCEphine 1G INJ) 1 gm Q24H IVPB 04/10/25 07:30 04/20/25 07:29 Ondansetron HCl (zoFRAN 4MG INJ) 4 mg Q6H PRN IVP NAUSEA/VOMITING 04/09/25 07:30 05/09/25 07:29 Pantoprazole Sodium (PROTonix 40MG INJ) 40 mg BID IVP 04/09/25 21:00 05/09/25 20:59 Diagnostics / Radiology: [COPY/PASTE HERE IF NO REPORTS PLEASE DELETE SECTION] Assessment: [Hematemesis Esophageal Varices Concern for GI bleed Liver Cirrhosis ] Plan: Case discussed with Dr. Ibanez 1. NPO 2. Pantoprazole drip: 80 mg IV bolus and then 8 mg /hr IV infusion for 72 hours 3. Octreotide 50 mcg IV bolus and then 50 mcg/hr IV infusion for 72 hours 4. Recommend checking HGB every 6 hours and transfuse to goal HG>7. Please do not over transfuse 5. Please contact our service if the patient has significant bleeding such as hematemesis and we can proceed sooner with the EGD 6. Recommend Cardiology clearance for EGD. 7. Plan to repeat EGD once patient is stable and cleared by cardiology. Thank you for allowing us to participate in the care of this patient. ] SOPHIA NAGY NP Apr 09, 2025 13:14
[2025-04-09] MEDS: OCTREOTIDE 1,250 MCG /NS 250ML (DRIP) IV SCH (14:03)
--- NOTE | 2025-04-09 14:13 | NUR ---
Called DR Enzo Ibanez's office and got no answer, left a voice mail at [phone].
--- NOTE | 2025-04-09 14:29 | NUR ---
DCP:HOME Pt currently lives with yesenia Pratt [phone]. Pt does use a cane at home. Pt does not have any home health or provider services. Pt states that prior to coming to the hospital she was able to complete ADLs independently. PCP is Dr. Prateek Mooney and uses [facility] for any RX needs. At DC pt will want to go home and family can assist with transportation. Addendum: 04/09/25 at 1432 by MARIAH AGOSTO SS Amended: Links added.
[2025-04-09 15:07] VITALS: BP 127/60; PULSE 72; RESP 19; TEMP 98.4
--- NOTE | 2025-04-09 15:54 | NUR ---
Called DR Enzo Ibanez's office and got no answer, left a voice mail at [phone]
--- NOTE | 2025-04-09 17:46 | CONS ---
[facility] CARDIOLOGY CONSULTATION REPORT Cardiology consultation note dictated for Karolina Le MD Primary scale manager: Van Gardner MD Date Patient Seen: Apr 09, 2025 Requesting Physician: Cherelle Laboy NP Reason for Consultation: Perioperative risk assessment History of Present Illness: This is a 65-year-old female with a past medical history of hypertension, dyslipidemia, atrophic kidney, liver cirrhosis, portal hypotension, esophageal varices, pancytopenia, hypothyroidism, normal Lexiscan stress test on 2024, and 2D echo on 11/06/2024 demonstrated an EF of 60-65%, normal LV segmental wall motion and diastolic function with no significant valvular pathology who presented to the ED with complaints of hematemesis x2. Hgb 11.8 Hct 36.3. She underwent a MRCP on 04/08/2025 which revealed choledocholithiasis with complete removal by biliary sphincterotomy and balloon extraction, biliary tree sweeping, grade 1 esophageal varices actively bleeding banded and completely eradicated, slight resistance at GE junction, bleeding after passage of duodenoscope, small tear noted adjacent to grade 1 esophageal varix, banded x2 with good hemostasis. Cardiology has been consulted for perioperative risk assessment. The patient stated she had 2 episodes of hematemesis at home post EGD. The patient denies any chest pain, chest pressure, palpitations, dizziness, shortness of breath, orthopnea, PND, or syncope. EKG demonstrated sinus tachycardia with a heart rate of 114bpm, with possible old inferior and old anterior infarct similar to prior EKG on 01/31/2025. Past Medical History: As per HPI and summarized below Past Surgical History: Appendectomy Self-reported intestinal removal due to diverticulitis in unknown year in [place] Family History: Noncontributory Social History: The patient lives with family. Habits: The patient denies alcohol, tobacco, or illicit drug use. Home Meds: Home medication reconciliation pending Current Meds: Medications Dose Ordered Sig/Erika Start Time Stop Time Status Last Admin Pantoprazole Sodium 40 mg BID 04/09/25 21:00 05/09/25 20:59 Ceftriaxone Sodium 1 gm Q24H 04/10/25 07:30 04/20/25 07:29 Ondansetron HCl 4 mg Q6H PRN 04/09/25 07:30 05/09/25 07:29 Octreotide Acetate 1250 mcg/ Sodium Chloride 250 ml @ 0 mls/hr PROTOCOL 04/09/25 13:30 05/09/25 13:29 04/09/25 14:03 Review of Systems: CONST: No fever, fatigue, or weight changes. EYES: No recent vision problems. ENT: No congestion, ear pain, or sore throat. C/V: No chest pain, palpitations, or edema. RESP: No cough, congestion, wheezing or shortness of breath. GI: No abdominal pain, nausea, vomiting, constipation, or diarrhea. : No incontinence or dysuria. SKIN: No rash. NEURO: No headache, focal numbness or weakness, dizziness, or seizures. PSYCH: No depression or anxiety. HEME: No abnormal bruising or bleeding. LYMPH: No swollen glands. Physical Examination: GENERAL: No acute distress. HEAD: Normal with no signs of head trauma. EYES: PERRLA, EOMI, conjunctiva and sclera normal. ENT: Hearing grossly intact, normal oropharynx. NECK: Supple without JVD. There is no tenderness, lymphadenopathy, or masses. No thyromegaly. Normal carotid upstrokes without bruits. LUNGS: Clear breath sounds bilaterally. No wheezes, or rhonchi. HEART: Normal rate and rhythm. Normal S1 and S2 without gallop or rub. Soft 1/6 KINGSLEY heard at the RUSB VASC: Peripheral pulses +2 bilaterally. ABD: Bowel sounds normal, soft, nontender, no masses, no organomegaly. No audible bruits. : Not examined LYMPH: No lymphadenopathy noted. EXT: No clubbing, cyanosis or edema. SKIN: No rashes or lesions noted. NEURO: Awake, alert, and oriented x3. No focal sensory or strength deficits noted. Vital Signs (last 8hr) Date Time Temp Pulse Resp B/P (MAP) Pulse Ox O2 Delivery O2 Flow Rate FiO2 04/09/25 15:07 98.4 72 19 127/60 93 Room Air Laboratory: Hematology Labs: Test 04/09/25 04:26 Range/Units White Blood Count 4.8 4.8-10.8 K/uL Red Blood Count 3.64 L 4.00-5.50 MIL/uL Hemoglobin 11.8 L 12.0-16.0 g/dL Hematocrit 36.3 36-48 % Mean Corpuscular Volume 99.7 H 79-99 fL Mean Corpuscular Hemoglobin 32.4 27.0-33.0 pg Mean Corpuscular Hemoglobin Concent 32.5 32.0-36.0 g/dL Red Cell Distribution Width 15.3 11.0-15.5 % Platelet Count 52 L 130-400 K/uL Mean Platelet Volume 11.6 H 7.5-10.5 fL Immature Granulocyte % (Auto) 0.2 0-1 % Neutrophils (%) (Auto) 90.2 H 40.0-77.0 % Lymphocytes (%) (Auto) 7.1 L 21.0-51.0 % Monocytes (%) (Auto) 2.3 L 3.0-13.0 % Eosinophils (%) (Auto) 0.0 0.0-8.0 % Basophils (%) (Auto) 0.2 0.0-5.0 % Neutrophils # (Auto) 4.3 1.8-7.7 K/uL Lymphocytes # (Auto) 0.3 L 1.0-4.8 K/uL Monocytes # (Auto) 0.1 0.1-1.0 K/uL Eosinophils # (Auto) 0.00 0.00-0.70 K/uL Basophils # (Auto) 0.01 0.00-0.20 K/uL Absolute Immature Granulocyte (auto 0.01 0-1 K/uL Nucleated Red Blood Cells 0.0 0.0-0.19 % White Cell Morphology Comment See comments Platelet Morphology Comment DECREASED Chemistry Labs: Test 04/09/25 04:26 Range/Units Sodium Level 142 136-145 mmol/L Potassium Level 4.1 3.5-5.1 mmol/L Chloride Level 107 101-111 mmol/L Carbon Dioxide Level 26 21-32 mmol/L Blood Urea Nitrogen 16 7-18 mg/dL Creatinine 1.0 0.5-1.0 mg/dL Glomerular Filtration Rate Calc 62 >90 mL/min Random Glucose 113 H 70-105 mg/dL Total Calcium 9.1 8.5-10.1 mg/dL Total Bilirubin 5.6 H 0.2-1.0 mg/dL Direct Bilirubin 2.8 H 0.0-0.3 mg/dL Aspartate Amino Transf (AST/SGOT) 93 H 10-37 U/L Alanine Aminotransferase (ALT/SGPT) 51 12-78 U/L Alkaline Phosphatase 243 H 50-136 U/L Total Protein 7.0 6.0-8.3 g/dL Albumin 3.1 L 3.5-5.0 g/dL Coagulation Labs: Test 04/09/25 04:26 Range/Units Prothrombin Time 13.0 H 9.6-11.6 SEC Prothromb Time International Ratio 1.25 H 0.85-1.15 Activated Partial Thromboplast Time 27.0 26.3-35.5 SEC Diagnostics / Radiology: Impression and Plan: Perioperative risk assessment Hematemesis after MRCP on 04/08/2025 findings: choledocholithiasis with complete removal by biliary sphincterotomy and balloon extraction and grade 1 esophageal varices banded x2 Hypertension Dyslipidemia Atrophic kidney Liver cirrhosis Portal hypotension Esophageal varices Pancytopenia Hypothyroidism Normal Lexiscan stress test on 11/05/2024 2D echo on 11/06/2024 demonstrated an EF of 60-65%, normal LV segmental wall motion and diastolic function with no significant valvular pathology Perioperative risk assessment The patient is pending to have an EGD to evaluate the source of hematemesis in the AM The patient denied anginal equivalents, LVEF was intact, recent Lexiscan stress test was normal in 10/2024, and EKG without acute ischemia The patient is a low risk candidate for a low risk noncardiac procedure in the setting of recent MRCP without complications and recent cardiac studies HILARIO DELEON CONTENT CREATION MANAGER Apr 09, 2025 17:46
[2025-04-09 20:00] VITALS: BP 143/68; PULSE 77; RESP 18; TEMP 98.8
[2025-04-09 23:57] VITALS: BP 160/61; PULSE 80; RESP 18; TEMP 97.9; O2SAT 98
[2025-04-10] VITALS (8 sets, daily range): BP systolic 143–157; BP diastolic 62–75; PULSE 72–84; RESP 16–19; TEMP 97.6–98.8; O2SAT 93–95
--- NOTE | 2025-04-10 11:14 | PN ---
GASTROENTEROLOGY PROGRESS NOTE Date of Visit: Apr 10, 2025 Time of Visit: 11:13 Events / Notes: [[This is a 65-year-old female patient with past medical history for cirrhosis of the liver who presented with to the emergency room with complaints of hematemesis. Patient had undergone EGD with esophageal banding yesterday as an outpatient. Initial labs as follows: WBC 4.8, hemoglobin 11.8, platelets 52. CMP significant for total bilirubin of 5.6, direct bilirubin 2.8, AST 93, ALT 51, alkaline phos 243, albumin 3.1. PT 13.0, INR 1.25. Chest x-ray significant for mild cardiomegaly and pulmonary vascular congestion with interval worsening. On exam patient is resting in stretcher in the ER room nine in no acute distress. Respirations are even and unlabored with bilateral breath sounds. Abdomen is soft and nondistended, and nontender. Active bowel sounds are present. Plan of care discussed and will continue monitoring. 04/10/25: Cardiology clearance completed, patient is at low risk cardiovascular events. Patient has not had any emesis since admission. Her vital signs have remained stable.Recommendations for EGD given to reevaluate previous bleed. Elvia ent and spouse agreed. ] Review of Systems: CONSTITUTIONAL: No malaise or change in sensation of wellbeing. ENMT: No rhinorrhea, otorrhea, sinus pain, ear ache. CARDIOVASCULAR: No angina, palpitations, orthopnea or paroxysmal dyspnea. RESPIRATORY: No SOB. GASTROINTESTINAL: No abdominal pain, nausea, vomiting, diarrhea, hematemesis, melena or change in the patient's habitual bowel movements consistency/number. GENITOURINARY: No dysuria, hematuria or change in bladder continence. MUSCULOSKELETAL: No new muscle pain or decrease in muscular strength. No new joint swelling, redness or tenderness. SKIN: No new rash. spouse agreed. Physical Exam: GEN: Awake, alert, oriented in person, time and place, and in no acute distress. HEENT: No rhinorrhea. Oral pharyngeal mucosa is pink, moist and within normal limits. CHEST: Inspection, palpation and percussion of the chest were unremarkable. Lung auscultation revealed normal breath sounds bilaterally. CARDIAC: Heart sounds are regular. ABD: Soft, non-tender and not distended. No peritoneal signs on palpation. No organomegaly. Normal bowel sounds. EXT: No cyanosis or clubbing. No edema. SKIN: Intact. No rashes. JOINTS: No evidence of synovitis or acute arthritis. NEURO: Alert and oriented to name, place and person. No focal motor deficits. Normal speech. Strength is normal. Vital Signs (last 8hr) Date Time Temp Pulse Resp B/P (MAP) Pulse Ox O2 Delivery O2 Flow Rate FiO2 04/10/25 07:52 97.5 81 18 147/75 93 Room Air 04/10/25 03:17 97.9 72 16 153/65 100 Room Air Laboratory: [ ] Laboratory: Test 04/09/25 12:00 04/09/25 04:26 Range/Units Urine Color DARK-YELLOW YELLOW Urine Appearance CLOUDY H CLEAR Urine pH 5.5 5.0-8.0 Urine Specific [place] 1.026 1.001-1.031 Urine Protein 10 H NEGATIVE mg/dL Urine Glucose (UA) NEGATIVE NEGATIVE mg/dL Urine Ketones 10 H NEGATIVE mg/dL Urine Occult Blood NEGATIVE NEGATIVE Urine Nitrate NEGATIVE NEGATIVE Urine Bilirubin 1 H NEGATIVE mg/dL Urine Urobilinogen 2.0 H 0.2-1.0 mg/dL Urine Leukocyte Esterase 25 H NEGATIVE Harjeet/uL Urine RBC 2-5 H 0-1 /HPF Urine WBC 6-10 H 0-1 /HPF Urine Squamous Epithelial Cells MOD 0-2 /HPF Urine Bacteria RARE None Seen /HPF White Blood Count 4.8 4.8-10.8 K/uL Red Blood Count 3.64 L 4.00-5.50 MIL/uL Hemoglobin 11.8 L 12.0-16.0 g/dL Hematocrit 36.3 36-48 % Mean Corpuscular Volume 99.7 H 79-99 fL Mean Corpuscular Hemoglobin 32.4 27.0-33.0 pg Mean Corpuscular Hemoglobin Concent 32.5 32.0-36.0 g/dL Red Cell Distribution Width 15.3 11.0-15.5 % Platelet Count 52 L 130-400 K/uL Mean Platelet Volume 11.6 H 7.5-10.5 fL Immature Granulocyte % (Auto) 0.2 0-1 % Neutrophils (%) (Auto) 90.2 H 40.0-77.0 % Lymphocytes (%) (Auto) 7.1 L 21.0-51.0 % Monocytes (%) (Auto) 2.3 L 3.0-13.0 % Eosinophils (%) (Auto) 0.0 0.0-8.0 % Basophils (%) (Auto) 0.2 0.0-5.0 % Neutrophils # (Auto) 4.3 1.8-7.7 K/uL Lymphocytes # (Auto) 0.3 L 1.0-4.8 K/uL Monocytes # (Auto) 0.1 0.1-1.0 K/uL Eosinophils # (Auto) 0.00 0.00-0.70 K/uL Basophils # (Auto) 0.01 0.00-0.20 K/uL Absolute Immature Granulocyte (auto 0.01 0-1 K/uL Nucleated Red Blood Cells 0.0 0.0-0.19 % White Cell Morphology Comment See comments Platelet Morphology Comment DECREASED Prothrombin Time 13.0 H 9.6-11.6 SEC Prothromb Time International Ratio 1.25 H 0.85-1.15 Activated Partial Thromboplast Time 27.0 26.3-35.5 SEC Sodium Level 142 136-145 mmol/L Potassium Level 4.1 3.5-5.1 mmol/L Chloride Level 107 101-111 mmol/L Carbon Dioxide Level 26 21-32 mmol/L Blood Urea Nitrogen 16 7-18 mg/dL Creatinine 1.0 0.5-1.0 mg/dL Glomerular Filtration Rate Calc 62 >90 mL/min Random Glucose 113 H 70-105 mg/dL Total Calcium 9.1 8.5-10.1 mg/dL Total Bilirubin 5.6 H 0.2-1.0 mg/dL Direct Bilirubin 2.8 H 0.0-0.3 mg/dL Aspartate Amino Transf (AST/SGOT) 93 H 10-37 U/L Alanine Aminotransferase (ALT/SGPT) 51 12-78 U/L Alkaline Phosphatase 243 H 50-136 U/L Total Protein 7.0 6.0-8.3 g/dL Albumin 3.1 L 3.5-5.0 g/dL Current Medications Medications (Trade) Dose Ordered Sig/Erika Route PRN Reason Start Time Stop Time Status Last Admin Dose Admin Ceftriaxone Sodium (ROCEphine 1G INJ) 1 gm Q24H IVPB 04/10/25 07:30 04/20/25 07:29 04/10/25 06:38 1 GM Octreotide Acetate 1250 mcg/ Sodium Chloride 250 ml @ 0 mls/hr PROTOCOL IV 04/09/25 13:30 05/09/25 13:29 04/09/25 14:03 5 MLS/HR Octreotide Acetate 500 mcg/ Sodium Chloride 100 ml @ 0 mls/hr PROTOCOL IV 04/09/25 13:30 04/09/25 13:21 DC Ondansetron HCl (zoFRAN 4MG INJ) 4 mg Q6H PRN IVP NAUSEA/VOMITING 04/09/25 07:30 05/09/25 07:29 Pantoprazole Sodium (PROTonix 40MG INJ) 40 mg BID IVP 04/09/25 21:00 05/09/25 20:59 04/10/25 08:59 40 MG Diagnostics / Radiology: [COPY/PASTE HERE IF NO REPORTS PLEASE DELETE SECTION] Assessment: [Hematemesis Esophageal Varices Concern for GI bleed Liver Cirrhosis ] Plan: Case discussed with Dr. Ibanez 1. Clear liquids today then NPO after midnight. 2. Continue Pantoprazole drip: 80 mg IV bolus and then 8 mg /hr IV infusion for 72 hours 3. Continue Octreotide 50 mcg IV bolus and then 50 mcg/hr IV infusion for 72 hours 4. Recommend checking HGB every 6 hours and transfuse to goal HG>7. Please do not over transfuse 5. Please contact our service if the patient has significant bleeding such as hematemesis and we can proceed sooner with the EGD 6. Cardiac clearance at low risk. 7. Plan to repeat EGD in am. Thank you for allowing us to participate in the care of this patient. ] SOPHIA NAGY NP Apr 10, 2025 11:14
[2025-04-10 11:22] LABS: IMMATURE GRANULOCYTE ABSOLUTE 0.01 K/uL (0-1); NUCLEATED RED BLOOD CELLS 0.0 % (0.0-0.19); PLATELET COUNT (AUTO) 42 K/uL (130-400); RED BLOOD CELL COUNT(AUTO) 3.20 MIL/uL (4.00-5.50); RED CELL DISTRIBUTION WIDTH 15.8 % (11.0-15.5); WHITE BLOOD COUNT (AUTO) 3.4 K/uL (4.8-10.8)
[2025-04-10 11:30] LABS: CREATININE 0.9 mg/dL (0.5-1.0); GLOMERULAR FILTR. RATE CALC 71.0 mL/min (>90); GLUCOSE,RANDOM 95.0 mg/dL (70-105); SODIUM SERUM 144.0 mmol/L (136-145); UREA NITROGEN, BLOOD 25.0 mg/dL (7-18)
[2025-04-10 11:35] LABS: ASPARTATE AMINOTRANSFERASE 43.0 U/L (10-37); TOTAL PROTEIN, SERUM 6.0 g/dL (6.0-8.3)
--- NOTE | 2025-04-10 11:40 | PN ---
[facility] PROGRESS NOTE Date of Service: Apr 10, 2025 Time of Service: 11:36 SUBJECTIVE: [ ] PCP: Prateek Burden MD CC; hematemenis post procedure esophageal banding This is a 65-year-old female that presents in ED having episodes of hematemenis post procedure; esophageal banding. Onset started 3:00 a.m. in the morning reports amount was moderate x2 episodes. Patient has underlying liver cirrhosis in her GI is Dr. Daquan Palencia. She decided to come to ED for further evaluation and treatment. Patient had another episode in ED labs were reviewed hemoglobin remained stable patient reports she was instructed on a clear liquid diet however we will keep her NPO until further recommendations by GI she denies abdominal pain shortness a breath dizziness chest pain. 04/10/2025 patient was seen earlier she is alert oriented x3. She reports ambulating to bathroom. patient is currently NPO no episodes of hematemenis her H&H remained stable GI plans to repeat EGD once she is cleared by knocker off's we continue to monitor for acute bleeding. REVIEW OF SYSTEMS A 12 point ROS was obtained all relevant positives were documented otherwise ROS negative PHYSICAL EXAM GENERAL APPEARANCE: The patient is awake, alert, and oriented, in no acute cardiopulmonary distress. NEUROLOGICAL: Cranial nerves II-XII grossly intact. Motor is 5/5 in bilateral upper and lower extremities proximal to distal. No sensory deficits. HEENT: Face is symmetric. Pupils are equal and reactive. Extraocular movements are intact. NECK: Supple. No JVD. No thyromegaly. No submental, submandibular, pre- /postauricular, occipital or supraclavicular lymphadenopathy. CHEST: Normal chest expansion. No Telemetry. LUNGS: Absence of any rales, rhonchi or any wheezing. CARDIOVASCULAR: Regular. S1 and S2 normal. No appreciable rubs, murmurs or gallops. ABDOMEN: Soft, nontender, and nondistended. There is no rebound, voluntary guarding, or rigidity. : Deferred. No Church. EXTREMITIES: Non-edematous and not cyanotic. No clubbing. Good capillary refill. SKIN: No skin breakdown. Vital Signs (last 8hr) Date Time Temp Pulse Resp B/P (MAP) Pulse Ox O2 Delivery O2 Flow Rate FiO2 04/10/25 07:52 97.5 81 18 147/75 93 Room Air LABS: Laboratory: Test 04/10/25 11:18 04/09/25 12:00 04/09/25 04:26 Range/Units White Blood Count 3.4 L 4.8-10.8 K/uL Red Blood Count 3.20 L 4.00-5.50 MIL/uL Hemoglobin 10.6 L 12.0-16.0 g/dL Hematocrit 32.1 L 36-48 % Mean Corpuscular Volume 100.3 H 79-99 fL Mean Corpuscular Hemoglobin 33.1 H 27.0-33.0 pg Mean Corpuscular Hemoglobin Concent 33.0 32.0-36.0 g/dL Red Cell Distribution Width 15.8 H 11.0-15.5 % Platelet Count 42 L 130-400 K/uL Mean Platelet Volume 10.7 H 7.5-10.5 fL Immature Granulocyte % (Auto) 0.3 0-1 % Neutrophils (%) (Auto) 86.2 H 40.0-77.0 % Lymphocytes (%) (Auto) 8.8 L 21.0-51.0 % Monocytes (%) (Auto) 4.1 3.0-13.0 % Eosinophils (%) (Auto) 0.3 0.0-8.0 % Basophils (%) (Auto) 0.3 0.0-5.0 % Neutrophils # (Auto) 2.9 1.8-7.7 K/uL Lymphocytes # (Auto) 0.3 L 1.0-4.8 K/uL Monocytes # (Auto) 0.1 0.1-1.0 K/uL Eosinophils # (Auto) 0.01 0.00-0.70 K/uL Basophils # (Auto) 0.01 0.00-0.20 K/uL Absolute Immature Granulocyte (auto 0.01 0-1 K/uL Nucleated Red Blood Cells 0.0 0.0-0.19 % Sodium Level 144 136-145 mmol/L Potassium Level 4.0 3.5-5.1 mmol/L Chloride Level 110 101-111 mmol/L Carbon Dioxide Level 25 21-32 mmol/L Blood Urea Nitrogen 25 H 7-18 mg/dL Creatinine 0.9 0.5-1.0 mg/dL Glomerular Filtration Rate Calc 71 >90 mL/min Random Glucose 95 70-105 mg/dL Total Calcium 8.3 L 8.5-10.1 mg/dL Total Bilirubin 2.3 H 0.2-1.0 mg/dL Aspartate Amino Transf (AST/SGOT) 43 H 10-37 U/L Alanine Aminotransferase (ALT/SGPT) 34 12-78 U/L Alkaline Phosphatase 169 H 50-136 U/L Total Protein 6.0 6.0-8.3 g/dL Albumin 2.5 L 3.5-5.0 g/dL Urine Color DARK-YELLOW YELLOW Urine Appearance CLOUDY H CLEAR Urine pH 5.5 5.0-8.0 Urine Specific [place] 1.026 1.001-1.031 Urine Protein 10 H NEGATIVE mg/dL Urine Glucose (UA) NEGATIVE NEGATIVE mg/dL Urine Ketones 10 H NEGATIVE mg/dL Urine Occult Blood NEGATIVE NEGATIVE Urine Nitrate NEGATIVE NEGATIVE Urine Bilirubin 1 H NEGATIVE mg/dL Urine Urobilinogen 2.0 H 0.2-1.0 mg/dL Urine Leukocyte Esterase 25 H NEGATIVE Harjeet/uL Urine RBC 2-5 H 0-1 /HPF Urine WBC 6-10 H 0-1 /HPF Urine Squamous Epithelial Cells MOD 0-2 /HPF Urine Bacteria RARE None Seen /HPF White Cell Morphology Comment See comments Platelet Morphology Comment DECREASED Prothrombin Time 13.0 H 9.6-11.6 SEC Prothromb Time International Ratio 1.25 H 0.85-1.15 Activated Partial Thromboplast Time 27.0 26.3-35.5 SEC Direct Bilirubin 2.8 H 0.0-0.3 mg/dL Current Medications Medications (Trade) Dose Ordered Sig/Erika Route PRN Reason Start Time Stop Time Status Last Admin Dose Admin Ceftriaxone Sodium (ROCEphine 1G INJ) 1 gm Q24H IVPB 04/10/25 07:30 04/20/25 07:29 04/10/25 06:38 1 GM Octreotide Acetate 1250 mcg/ Sodium Chloride 250 ml @ 0 mls/hr PROTOCOL IV 04/09/25 13:30 05/09/25 13:29 04/09/25 14:03 5 MLS/HR Octreotide Acetate 500 mcg/ Sodium Chloride 100 ml @ 0 mls/hr PROTOCOL IV 04/09/25 13:30 04/09/25 13:21 DC Ondansetron HCl (zoFRAN 4MG INJ) 4 mg Q6H PRN IVP NAUSEA/VOMITING 04/09/25 07:30 05/09/25 07:29 Pantoprazole Sodium (PROTonix 40MG INJ) 40 mg BID IVP 04/09/25 21:00 05/09/25 20:59 04/10/25 08:59 40 MG DIAGNOSTICS / RADIOLOGY: [ ] ASSESSMENT: Hematemesis x2 episodes moderate amount postprocedure esophageal banding POA Failure to Thrive POA Chronic problems Diabetes, hypertension, hyperlipidemia PLAN: [ ] Admit: Medical-surgical floor condition: Guarded Status: Full code IVF: NS at 75 mL/hour Diet clear liquid diet Continues Protonix IV b.i.d. in Sandostatin drip. As per GI wants patient to be infused for 72 hours. Procedure plan to do a repeat EGD once patient is stable and cleared by knocker off's Consultants GI, knocker off's Antibiotics: Rocephin1 g daily We will monitor H&H trend to keep hemoglobin above 7.0 Labs cbc, cmp, mag+ in a.m. Replace electrolytes as needed as per protocol to keep potassium above 4.0 magnesium 2.0. Home medications pending to be reviewed by RN nurse. PRN: MEDICATIONS Tylenol 650 mg po every 4 hrs for fever zofran 4 mg IV every 6 hrs for n/v Hydralazine 5 mg IV every 4 hrs systolic pressure > 160 bowel regiment: lactulose 20 gm PO BID PRN constipation Pain management: Supportive measures: DVT ppx, GI ppx all questions answered time spent: > 35 min Supervising MD: Dr. Camden Gonzalez c/d This document was generated in part using voice recognition software, occasional wrong word or sound alike substitutions may have occurred due to the inherent li mitations of voice recognition software. Read the chart carefully and recognize using context, where the substitutions have occurred. Although every effort was made to edit the content, roundhouse supervisor and typing errors may occur ATTESTATION BY PHYSICIAN I have seen and examined the patient. I reviewed the documentation, medical decision making, and treatment plan as noted by the mid-level provider above. I agree with the findings and plan of care. ELIZA THOMPSON MD, ELIZABETH NP Apr 10, 2025 11:40
[2025-04-11] VITALS (22 sets, daily range): BP systolic 143–159; BP diastolic 68–81; PULSE 67–100; RESP 14–18; TEMP 97.1–98.5; O2SAT 93
[2025-04-11 08:53] LABS: IMMATURE GRANULOCYTE ABSOLUTE 0.01 K/uL (0-1); NUCLEATED RED BLOOD CELLS 0.0 % (0.0-0.19); PLATELET COUNT (AUTO) 58 K/uL (130-400); RED BLOOD CELL COUNT(AUTO) 3.12 MIL/uL (4.00-5.50); RED CELL DISTRIBUTION WIDTH 15.7 % (11.0-15.5); WHITE BLOOD COUNT (AUTO) 2.6 K/uL (4.8-10.8)
--- NOTE | 2025-04-11 09:22 | PN ---
[facility] PROGRESS NOTE Date of Service: Apr 11, 2025 Time of Service: 09:22 SUBJECTIVE: [ ] PCP: Prateek Burden MD CC; hematemenis post procedure esophageal banding This is a 65-year-old female that presents in ED having episodes of hematemenis post procedure; esophageal banding. Onset started 3:00 a.m. in the morning reports amount was moderate x2 episodes. Patient has underlying liver cirrhosis in her GI is Dr. Daquan Palencia. She decided to come to ED for further evaluation and treatment. Patient had another episode in ED labs were reviewed hemoglobin remained stable patient reports she was instructed on a clear liquid diet however we will keep her NPO until further recommendations by GI she denies abdominal pain shortness a breath dizziness chest pain. 04/10/2025 patient was seen earlier she is alert oriented x3. She reports ambulating to bathroom. patient is currently NPO no episodes of hematemenis her H&H remained stable GI plans to repeat EGD once she is cleared by stereo equipment installer's we continue to monitor for acute bleeding. 04/11/25 she is scheduled today for EGD we will follow GI recommendation postprocedure. Most likely patient will continue on Sandostatin and Protonix drip for the next 24 hours. Primary nurse reports no events overnight REVIEW OF SYSTEMS A 12 point ROS was obtained all relevant positives were documented otherwise ROS negative PHYSICAL EXAM GENERAL APPEARANCE: The patient is awake, alert, and oriented, in no acute card iopulmonary distress. NEUROLOGICAL: Cranial nerves II-XII grossly intact. Motor is 5/5 in bilateral upper and lower extremities proximal to distal. No sensory deficits. HEENT: Face is symmetric. Pupils are equal and reactive. Extraocular movements are intact. NECK: Supple. No JVD. No thyromegaly. No submental, submandibular, pre- /postauricular, occipital or supraclavicular lymphadenopathy. CHEST: Normal chest expansion. No Telemetry. LUNGS: Absence of any rales, rhonchi or any wheezing. CARDIOVASCULAR: Regular. S1 and S2 normal. No appreciable rubs, murmurs or gallops. ABDOMEN: Soft, nontender, and nondistended. There is no rebound, voluntary guarding, or rigidity. : Deferred. No Church. EXTREMITIES: Non-edematous and not cyanotic. No clubbing. Good capillary refill. SKIN: No skin breakdown. Vital Signs (last 8hr) Date Time Temp Pulse Resp B/P (MAP) Pulse Ox O2 Delivery O2 Flow Rate FiO2 04/11/25 07:29 98.4 77 16 151/81 93 Room Air 04/11/25 04:00 98.4 100 18 155/75 99 Room Air LABS: Laboratory: Test 04/11/25 08:45 04/10/25 11:18 04/09/25 12:00 Range/Units White Blood Count 2.6 L 4.8-10.8 K/uL Red Blood Count 3.12 L 4.00-5.50 MIL/uL Hemoglobin 10.1 L 12.0-16.0 g/dL Hematocrit 31.2 L 36-48 % Mean Corpuscular Volume 100.0 H 79-99 fL Mean Corpuscular Hemoglobin 32.4 27.0-33.0 pg Mean Corpuscular Hemoglobin Concent 32.4 32.0-36.0 g/dL Red Cell Distribution Width 15.7 H 11.0-15.5 % Platelet Count 58 #L 130-400 K/uL Mean Platelet Volume 9.4 7.5-10.5 fL Immature Granulocyte % (Auto) 0.4 0-1 % Neutrophils (%) (Auto) 72.0 40.0-77.0 % Lymphocytes (%) (Auto) 16.7 L 21.0-51.0 % Monocytes (%) (Auto) 8.9 3.0-13.0 % Eosinophils (%) (Auto) 1.6 0.0-8.0 % Basophils (%) (Auto) 0.4 0.0-5.0 % Neutrophils # (Auto) 1.9 1.8-7.7 K/uL Lymphocytes # (Auto) 0.4 L 1.0-4.8 K/uL Monocytes # (Auto) 0.2 0.1-1.0 K/uL Eosinophils # (Auto) 0.04 0.00-0.70 K/uL Basophils # (Auto) 0.01 0.00-0.20 K/uL Absolute Immature Granulocyte (auto 0.01 0-1 K/uL Nucleated Red Blood Cells 0.0 0.0-0.19 % Sodium Level 144 136-145 mmol/L Potassium Level 4.0 3.5-5.1 mmol/L Chloride Level 110 101-111 mmol/L Carbon Dioxide Level 25 21-32 mmol/L Blood Urea Nitrogen 25 H 7-18 mg/dL Creatinine 0.9 0.5-1.0 mg/dL Glomerular Filtration Rate Calc 71 >90 mL/min Random Glucose 95 70-105 mg/dL Total Calcium 8.3 L 8.5-10.1 mg/dL Total Bilirubin 2.3 H 0.2-1.0 mg/dL Aspartate Amino Transf (AST/SGOT) 43 H 10-37 U/L Alanine Aminotransferase (ALT/SGPT) 34 12-78 U/L Alkaline Phosphatase 169 H 50-136 U/L Total Protein 6.0 6.0-8.3 g/dL Albumin 2.5 L 3.5-5.0 g/dL Urine Color DARK-YELLOW YELLOW Urine Appearance CLOUDY H CLEAR Urine pH 5.5 5.0-8.0 Urine Specific [place] 1.026 1.001-1.031 Urine Protein 10 H NEGATIVE mg/dL Urine Glucose (UA) NEGATIVE NEGATIVE mg/dL Urine Ketones 10 H NEGATIVE mg/dL Urine Occult Blood NEGATIVE NEGATIVE Urine Nitrate NEGATIVE NEGATIVE Urine Bilirubin 1 H NEGATIVE mg/dL Urine Urobilinogen 2.0 H 0.2-1.0 mg/dL Urine Leukocyte Esterase 25 H NEGATIVE Harjeet/uL Urine RBC 2-5 H 0-1 /HPF Urine WBC 6-10 H 0-1 /HPF Urine Squamous Epithelial Cells MOD 0-2 /HPF Urine Bacteria RARE None Seen /HPF Current Medications Medications (Trade) Dose Ordered Sig/Erika Route PRN Reason Start Time Stop Time Status Last Admin Dose Admin Ceftriaxone Sodium (ROCEphine 1G INJ) 1 gm Q24H IVPB 04/10/25 07:30 04/20/25 07:29 04/11/25 06:26 1 GM Octreotide Acetate 1250 mcg/ Sodium Chloride 250 ml @ 0 mls/hr PROTOCOL IV 04/09/25 13:30 05/09/25 13:29 04/11/25 00:33 5 MLS/HR Octreotide Acetate 500 mcg/ Sodium Chloride 100 ml @ 0 mls/hr PROTOCOL IV 04/09/25 13:30 04/09/25 13:21 DC Ondansetron HCl (zoFRAN 4MG INJ) 4 mg Q6H PRN IVP NAUSEA/VOMITING 04/09/25 07:30 05/09/25 07:29 Pantoprazole Sodium (PROTonix 40MG INJ) 40 mg BID IVP 04/09/25 21:00 05/09/25 20:59 04/10/25 21:22 40 MG DIAGNOSTICS / RADIOLOGY: [ ] ASSESSMENT: Hematemesis x2 episodes moderate amount postprocedure esophageal banding POA Failure to Thrive POA Chronic problems Diabetes, hypertension, hyperlipidemia PLAN: [ ] Admit: Medical-surgical floor condition: Guarded Status: Full code IVF: Hep-Lock Diet clear liquid diet Continues Protonix IV b.i.d. in Sandostatin drip. As per GI wants patient to be infused for 72 hours. Procedure repeat EGD cleared by stereo equipment installer's Consultants GI, stereo equipment installer's Antibiotics: Rocephin1 g daily We will monitor H&H trend to keep hemoglobin above 7.0 Labs cbc, cmp, mag+ in a.m. Replace electrolytes as needed as per protocol to keep potassium above 4.0 magnesium 2.0. Home medications pending to be reviewed by RN nurse. Supportive measures: DVT ppx, GI ppx all questions answered Supervising MD: Dr. Camden Gonzalez c/d This document was generated in part using voice recognition software, occasional wrong word or sound alike substitutions may have occurred due to the inherent limitations of voice recognition software. Read the chart carefully and bassem gnize using context, where the substitutions have occurred. Although every effort was made to edit the content, oxide furnace tender and typing errors may occur ATTESTATION BY PHYSICIAN I have seen and examined the patient. I reviewed the documentation, medical decision making, and treatment plan as noted by the mid-level provider above. I agree with the findings and plan of care. ELIZA THOMPSON MD, ELIZABETH NP Apr 11, 2025 09:22
[2025-04-11 10:00] LABS: EOSINOPHILS % (MANUAL) 2 % (1-6); LYMPHOCYTES % (MANUAL) 21 % (22-44); MAN.DIFF COMMENT-IMPRESSION MANUAL DIFFERENTIAL; REACTIVE LYMPHOCYTES 1 % (0-0); SEGMENTED NEUTROPHILS % 76 % (40-70)
[2025-04-11 10:07] LABS: PLATELET MORPHOLOGY COMMENT DECREASED; WBC MORPHOLOGY SMUDGE CELLS 1+
--- NOTE | 2025-04-11 10:13 | NUR ---
PLT TRANSFUSION: PER MD ORDER, AND WITH PT PERMISSION/CONSENT PLTS TRANSFUSION STARTED WITH ROD MCGARRY. PRE-VITALS STABLE. NO REACTION NOTED. PT DAUGHTER AT BEDSIDE. WILL CONTINUE TO MONITOR
--- NOTE | 2025-04-11 10:23 | NUR ---
PT TAKEN TO GI PROCEDURE, PLTS INFUSING PER MD ORDER. FAMILY AT BEDSIDE.
--- NOTE | 2025-04-11 13:57 | NUR ---
Nutritional Note: Chart, meds, and labs Reviewed. Pt at procedure at time of visit. Recommend: -Continue NPO per medical management; reassess for oral tolerance. - if prolong (>3-5days), consider EN via NG tube - if unable to tolerate EN, evaluated for PN due to malabsorption risk. -Monitor refeeding syndrome risk up initiation of nutrition: replete electrolytes before advancing nutrition (K+, phos and mg) Start at 50%-75% of estimated needs and advance as tolerated. -Provide Thiamine 100mg IV daily x 5 days to prevent refeeding syndrome -Monitor K, mg PO4 for refeeding risk and correct as needed - Electrolyte replacements per protocol -Nephrovite MVI combination of B vitamins may be used to treat or prevent vitamin deficiency due to poor diet. -Monitor feeding tolerance, %, wt, and labs -Document PO intake and wt daily. -If No BM >3days consider bowel stimulant. -Consider appetite stimulant if intake remains <75%for 3 days. -Schedule outpatient RD f/u for long-term nutrition care. - Notify RD if additional nutrition concerns arise. SEE RD Nutritional Assessment for additional assessment information. Addendum: 04/11/25 at [address] Amended: Links added.
[2025-04-12] VITALS (7 sets, daily range): BP systolic 134–155; BP diastolic 68–75; PULSE 67–70; RESP 17–19; TEMP 97.6–98.3; O2SAT 92–94
[2025-04-12] MEDS ORDERED: PANT40TA55 PO (11:06)
--- NOTE | 2025-04-12 11:08 | DS ---
Discharge Summary Hospital Course Summary: PCP: Prateek Burden MD CC; hematemenis post procedure esophageal banding This is a 65-year-old female that presents in ED having episodes of hematemenis post procedure; esophageal banding. Onset started 3:00 a.m. in the morning reports amount was moderate x2 episodes. Patient has underlying liver cirrhosis in her GI is Dr. Daquan Palencia. She decided to come to ED for further evaluation and treatment. Patient had another episode in ED labs were reviewed hemoglobin remained stable patient reports she was instructed on a clear liquid diet however we will keep her NPO until further recommendations by GI she denies abdominal pain shortness a breath dizziness chest pain. 04/10/2025 patient was seen earlier she is alert oriented x3. She reports ambulating to bathroom. patient is currently NPO no episodes of hematemenis her H&H remained stable GI plans to repeat EGD once she is cleared by livestock feeder's we continue to monitor for acute bleeding. 04/11/25 she is scheduled today for EGD we will follow GI recommendation postprocedure. Most likely patient will continue on Sandostatin and Protonix drip for the next 24 hours. Primary nurse reports no events overnight 04/12/2025. Patient is clinically stable no episodes of hematemesis no abdominal pain no nausea vomiting. Patient is tolerating clears and advance diet tolerated. Patient to follow-up with GI in one-week. Patient is to continue Protonix 40 mg waiting for one month as per GI recommendations. Patient is hemodynamically stable all questions and concerns addressed. Branch Manager(s): GENERAL APPEARANCE: The patient is awake, alert, and oriented, in no acute cardiopulmonary distress. NEUROLOGICAL: Cranial nerves II-XII grossly intact. Motor is 5/5 in bilateral upper and lower extremities proximal to distal. No sensory deficits. HEENT: Face is symmetric. Pupils are equal and reactive. Extraocular movements are intact. NECK: Supple. No JVD. No thyromegaly. No submental, submandibular, pre- /postauricular, occipital or supraclavicular lymphadenopathy. CHEST: Normal chest expansion. No Telemetry. LUNGS: Absence of any rales, rhonchi or any wheezing. CARDIOVASCULAR: Regular. S1 and S2 normal. No appreciable rubs, murmurs or gallops. ABDOMEN: Soft, nontender, and nondistended. There is no rebound, voluntary gu arding, or rigidity. : Deferred. No Church. EXTREMITIES: Non-edematous and not cyanotic. No clubbing. Good capillary refill. SKIN: No skin breakdown. Assessment/Plan: Discharged dx's: Hematemesis x2 episodes moderate amount postprocedure esophageal banding POA 04/11/25 EGD findings; grade I esophageal varices, Esophageal ulcer at site of prior variceal treatment, Portal hypertensive gastropathy. 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 IMAGING (S) report attached to summary : MICROBIOLOGY: report attached to summary; ACTIVITY: ab benjamín HOME MEDICATIONS reviewed CHANGES ON HOME MEDICATIONS none NEW MEDICATIONS none TEACHING: GI soft diet Emergency instructions: The patient was instructed to present to the nearest Emergency Department or call 911 should their symptoms return or worsen. Home Medications: Active Scripts Losartan Potassium (Losartan Potassium) 100 Mg Tablet, 1 TAB PO HS for 30 Days, #30 TAB 0 Refills Prov:YAN SAINI AGNP 11/07/24 Reported Medications Ergocalciferol (Vitamin D2) (Vitamin D2) 1,250 Mcg (99994 Unit) Capsule, 1 CAP PO QWEEK Mondays02/17/25 Folic Acid (Folvite) 1 Mg Tab, 1 TAB PO BID 02/17/25 Amlodipine Besylate (Amlodipine Besylate) 5 Mg Tablet, 1 TAB PO DAILY 02/17/25 Cyanocobalamin (Vitamin B-12) (Vitamin B12) 2,500 Mcg Tablet, 1 TAB PO DAILY for 30 Days, #30 TAB 0 Refills 02/17/25 Levothyroxine Sodium (Levothyroxine) 75 Mcg Capsule, 1 TAB PO ACBKFST for 30 Days, #30 CAP 0 Refills 02/01/25 Pantoprazole Sodium (Pantoprazole Sodium) 40 Mg Tablet.dr 40 MG PO DAILY, TAB 02/01/25 Lactulose (Lactulose) 20 Gm/30 Ml Solution, 20 GM PO DAILY, ML 01/07/16 Propranolol HCl (Propranolol HCl) 20 Mg Tablet, 20 MG PO BID, TAB 01/07/16 Discontinued Scripts Amoxicillin/Potassium Clav (Amox Tr-K Clv 875-125 mg Tab) 875 Mg-125 Mg Tablet, 1 TAB PO BID for 5 Days, #10 TAB 0 Refills Prov:RENEE SIBLEY MD 02/20/25 Hydrocortisone Acetate (Anucort-Hc) 25 Mg Supp.rect, 1 SUPP UT BID PRN for HEMORRHOIDS, #1 0 Refills Prov:RENEE SIBLEY MD 02/20/25 New Medications: Pantoprazole Sodium (Protonix) 40 Mg Ectab 40 MG PO BID, #60 TAB.EC Continued Medications: Amlodipine Besylate (Amlodipine Besylate) 5 Mg Tablet 1 TAB PO DAILY Cyanocobalamin (Vitamin B-12) (Vitamin B12) 2,500 Mcg Tablet 1 TAB PO DAILY for 30 Days, #30 TAB 0 Refills Ergocalciferol (Vitamin D2) (Vitamin D2) 1,250 Mcg (84050 Unit) Capsule 1 CAP PO QWEEK MONDAYS Folic Acid (Folvite) 1 Mg Tab 1 TAB PO BID Lactulose (Lactulose) 20 Gm/30 Ml Solution 20 GM PO DAILY, ML Levothyroxine Sodium (Levothyroxine) 75 Mcg Capsule 1 TAB PO ACBKFST for 30 Days, #30 CAP 0 Refills Losartan Potassium (Losartan Potassium) 100 Mg Tablet 1 TAB PO HS for 30 Days, #30 TAB 0 Refills Propranolol HCl (Propranolol HCl) 20 Mg Tablet 20 MG PO BID, TAB Discontinued Medications: Pantoprazole Sodium (Pantoprazole Sodium) 40 Mg Tablet. 40 MG PO DAILY, TAB Time spent arranging discharge: 31-60 minutes ATTESTATION BY PHYSICIAN I have seen and examined the patient. I reviewed the documentation, medical decision making, and treatment plan as noted by the mid-level provider above. I agree with the findings and plan of care. ELIZA THOMPSON MD, ELIZABETH NP Apr 12, 2025 11:08
--- NOTE | 2025-04-12 17:12 | NUR ---
DISCHARGE PT PIV DC'D PT VERBALIZED UNDERSTANDING OF DISCHARGE INSTRUCTIONS PT GATHERED AND TOOK ALL BELONGINGS PT HAD NO FURTHER QUESTIONS AT TIME OF DISCHARGE
== END 2025-04-12 18:15 | disposition home or self-care (01) | DRG 810 ==
LOC: EDH 04:10 → EDHIP 04:11 → 3DH 23:50
PROVIDERS: ADMIT Internal Medicine; ATTEND Internal Medicine
PROC: 30233R1 Transfusion of Nonautologous Platelets into Peripheral Vein, Percutaneous Approach (ICD-10-PCS; principal; 2025-04-11)
PROC: 0DJ08ZZ Inspection of Upper Intestinal Tract, Via Natural or Artificial Opening Endoscopic (ICD-10-PCS; 2025-04-11)
DX: K91.840 Postprocedural hemorrhage of a digestive system organ or structure following a digestive system procedure (principal); I85.11 Secondary esophageal varices with bleeding; R64 Cachexia; D61.818 Other pancytopenia; E44.0 Moderate protein-calorie malnutrition; I85.10 Secondary esophageal varices without bleeding; K22.10 Ulcer of esophagus without bleeding; K76.6 Portal hypertension; K74.60 Unspecified cirrhosis of liver; R62.7 Adult failure to thrive; E11.9 Type 2 diabetes mellitus without complications; E03.9 Hypothyroidism, unspecified; E78.5 Hyperlipidemia, unspecified; I10 Essential (primary) hypertension; K31.89 Other diseases of stomach and duodenum; K80.50 Calculus of bile duct without cholangitis or cholecystitis without obstruction; I25.2 Old myocardial infarction; Z87.19 Personal history of other diseases of the digestive system; Z68.1 Body mass index [BMI] 19.9 or less, adult; D62 Acute posthemorrhagic anemia
CPT/HCPCS: 36415; 36430; 43235; 71045; 80048; 80053; 80076; 81001; 85025; 85610; 85730; 86850; 86900; 86901; 87086; 93005; 96374; 96375; 99285; A4606; G0378; J0696; J2270; J2354; J2405; J2470; J2704; J3430; J7030; J7050; P9034; A4215; A4620; J3490